=== PATIENT | female | born 1990 | race American Indian/Alaskan Native ===

== ENCOUNTER 2018-01-13 13:25 | Inpatient (IN) | payer MEDICAID ==
[2018-01-13] MEDS ORDERED: ePHEDrine SULFATE IV PRN ×2 (13:58→16:16)
[2018-01-13] MEDS ORDERED: BRETHINE SUB-Q PRN (13:58)
[2018-01-13] MEDS ORDERED: CALCIUM GLUCONATE IV ONE (13:58)
[2018-01-13] MEDS ORDERED: NARCAN 0.4 MG/1 ML IV PRN (13:58)
[2018-01-13] MEDS ORDERED: BRETHINE IVP PRN (13:58)
[2018-01-13] MEDS ORDERED: ZOFRAN IV PRN ×2 (13:58→19:55)
[2018-01-13] MEDS ORDERED: XYLOCAINE 2% INFILTRATI ONE (13:58)
[2018-01-13] MEDS ORDERED: POLYCILLIN/NS 2 GM/100 ML 2 GM/100 ML BAG IV ONE (13:58)
[2018-01-13] MEDS ORDERED: MAGNESIUM SULFATE 4GM/100ML 4 GM/100 ML BAG IV ONE (13:58)
[2018-01-13] MEDS ORDERED: MINERAL OIL PO PRN (13:58)
[2018-01-13] MEDS ORDERED: PITOCin/NS 20 UNIT/1000ML DRIP 20 UNITS/1,000 ML BAG IV SCH ×2 (14:00→19:55)
[2018-01-13] MEDS ORDERED: LACTATED RINGERS 1,000 ML IV SCH ×2 (14:00)
[2018-01-13] MEDS: APRESOLINE IV PRN ×3 (14:15→19:43)
[2018-01-13] MEDS: SUBLIMAZE IV PRN ×2 (14:32→17:20)
[2018-01-13 14:34] LABS: Hematocrit 33.7 % (30.3-42.9); Mean Corpuscular HGB Conc 33 % (30-34); Mean Corpuscular Hemoglobin 28 pg (28-32); Mean Corpuscular Volume 84 fl (79-97); Platelet Count 120 K/mm3 (140-440); Red Blood Count 4.02 M/mm3 (3.65-5.03)
[2018-01-13] MEDS: PITOCin/NS 30 UNIT/500ML 30 UNITS/500 ML BAG IV SCH ×2 (14:37→15:21)
[2018-01-13] MEDS: MAGNESIUM SULFATE 40GM/1000ML 40 GM/1,000 ML BAG IV SCH (15:05)
[2018-01-13 15:43] LABS: Alanine Aminotransferase < 5 units/L (7-56)
[2018-01-13] MEDS ORDERED: NARCAN 2 MG/2 ML IV PRN (16:16)
--- NOTE | 2018-01-13 16:16 | History and Physical Report ---
History of Present Illness Date of examination: 01/13/18 Date of admission: 01/13/18 13:59 Chief complaint: contractions History of present illness: Pt is a 28 year old -[place] female MOHIT 01/20/18 at 39w0d who presents with regular contractions and elevated blood pressures 210s/110s and cervical dilation of 4 cm. While in triage, the patient experienced rupture of membranes with thick meconium. She has had care at [facility] since entry into care at 15 wks complicated by chronic hypertension on labetalol daily (pt non-compliant with medication regimen), late entry into care , h/o preeclampsia in previous , genital herpes without evidence of lesion or prodrome, morbid obesity. She is GBS unknown. Of note, her blood pressures were elevated in the office on 01/11/18 and the patient was instructed to proceed to labor and delivery but she refused at that time. 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 Family/Genetic History: hypertension Social history: no significant social history - Obstetrical History Expected Date of Delivery: 01/20/18 Actual Gestation: 39 Week(s) 0 Day(s) : 3 Para: 2 Hx # Term Pregnancies: 2 Number of Pregnancies: 0 Spontaneous Abortions: 0 Induced : 0 Number of Living Children: 2 Medications and Allergies Allergies Allergy/AdvReac Type Severity Reaction Status Date / Time Latex, Natural Rubber Allergy Mild Itching Verified 01/13/18 13:43 Home Medications Medication Instructions Recorded Confirmed Last Taken Type Labetalol HCl 200 tab PO BID 01/13/18 01/13/18 1 Day Ago History ~01/12/18 Active Meds: Active Medications Ephedrine Sulfate (Ephedrine Sulfate) 10 mg IV Q2M PRN PRN Reason: Hypotension Fentanyl (Sublimaze) 100 mcg IV Q2H PRN PRN Reason: Labor Pain Last Admin: 01/13/18 14:32 Dose: 100 mcg Hydralazine HCl (Apresoline) 5 mg IV Q30MIN PRN PRN Reason: Hypertension Last Admin: 01/13/18 14:15 Dose: 5 mg Ampicillin Sodium (Ampicillin/Ns 1 Gm/50 Ml) 1 gm in 50 mls @ 100 mls/hr IV Q4HR ANSHU; Protocol Lactated Ringer's (Lactated Ringers) 1,000 mls @ 125 mls/hr IV DIRECT ANSHU Last Admin: 01/13/18 15:20 Dose: 125 mls/hr Lactated Ringer's (Lactated Ringers) 1,000 mls @ 125 mls/hr IV DIRECT ANSHU Magnesium Sulfate (Magnesium Sulfate 40gm/1000ml) 40 gm in 1,000 mls @ 50 mls/ hr IV DIRECT ANSHU Last Admin: 01/13/18 15:05 Dose: 2 gm/hr, 50 mls/hr Oxytocin/Sodium Chloride (Pitocin/Ns 20 Unit/1000ml Drip) 20 units in 1,000 mls @ 125 mls/hr IV DIRECT ANSHU Oxytocin/Sodium Chloride (Pitocin/Ns 30 Unit/500ml) 30 units in 500 mls @ 4 mls /hr IV TITR ANSHU; Protocol Last Admin: 01/13/18 15:21 Dose: 8 ml/hr, 8 mls/hr Mineral Oil (Mineral Oil) 30 ml PO QHS PRN PRN Reason: Constipation Naloxone HCl (Narcan 0.4 Mg/1 Ml) 0.1 mg IV Q2MIN PRN PRN Reason: Res Rate </= 8 or 02 SAT < 92% Ondansetron HCl (Zofran) 4 mg IV Q8H PRN PRN Reason: Nausea And Vomiting Terbutaline Sulfate (Brethine) 0.25 mg SUB-Q ONCE PRN PRN Reason: Hyperstimulation/Hypertonicity Terbutaline Sulfate (Brethine) 0.25 mg IVP ONCE PRN PRN Reason: Hyperstimulation/Hypertonicity Review of Systems All systems: negative - Vital Signs Vital signs: Vital Signs Pulse BP 89 224/127 01/13/18 13:41 01/13/18 13:41 Temp Pulse Resp BP Pulse Ox 97.6 F 100 H 18 151/87 99 01/13/18 14:17 01/13/18 16:04 01/13/18 14:17 01/13/18 16:04 01/13/18 16:02 - Physical Exam Breasts: Positive: deferred Cardiovascular: Regular rate Lungs: Positive: Clear to auscultation Abdomen: Positive: soft (obese, gravid ) Genitourinary (Female): Positive: normal external genitalia Uterus: Positive: enlarged (gravid ) Extremities: Positive: edema (trace) - Obstetrical FHR: category 2 Cervical Dilatation: 4 (Per RN ) Uterine Contraction Pattern: Irregular Uterine Tone Measurement Phase: Resting Uterine Contraction Intensity: Moderate Results Result Diagrams: 01/13/18 14:00 01/13/18 14:00 Abnormal lab results 01/13/18 01/13/18 Range/Units 14:00 14:00 RDW 16.0 H (13.2-15.2) % Plt Count 120 L (140-440) K/mm3 Creatinine 0.6 L (0.7-1.2) mg/dL AST 54 H (5-40) units/L ALT < 5 L (7-56) units/L Lactate Dehydrogenase 851 H (91-180) units/L All other labs normal. Assessment and Plan A: IUP at 39w0d Chronic HTN with superimposed preeclampsia Thrombocytopenia Morbid Obesity Insufficient care GBS unknown Genital Herpes- no lesions or prodrome H/o Preeclampsia in previous P: Admit to labor and delivery. Magnesium sulfate for seizure prophylaxis PIH labs Pitocin augmentation GBS prophylaxis Closely monitor maternal and status
--- NOTE | 2018-01-13 16:19 | Anesthesia Consultation ---
Anesthesia Consult and Med Hx Date of service: 01/13/18 - Airway Anesthetic Teeth Evaluation: Good ROM Head & Neck: Adequate Mental/Hyoid Distance: Adequate Mallampati Class: Class II Intubation Access Assessment: Probably Good - Pulmonary Exam CTA: Yes - Cardiac Exam Cardiac Exam: RRR - Pre-Operative Health Status ASA Pre-Surgery Classification: ASA3 Proposed Anesthetic Plan: Epidural, Spinal - Pulmonary Hx Asthma: No COPD: No Hx Pneumonia: No - Cardiovascular System Hx Hypertension: Yes - Central Nervous System Hx Seizures: No Hx Psychiatric Problems: No - Endocrine Hx Renal Disease: No Hx End Stage Renal Disease: No Hx Hypothyroidism: No Hx Hyperthyroidism: No - Hematic Hx Anemia: No Hx Sickle Cell Disease: No - Other Systems Hx Alcohol Use: No
[2018-01-13] MEDS ORDERED: BICITRA ONE (16:23)
[2018-01-13] MEDS ORDERED: REGLAN ONE (16:23)
[2018-01-13] MEDS ORDERED: PEPCID IV ONE (16:24)
--- NOTE | 2018-01-13 16:24 | Anesthesia Day of Surgery ---
Anesthesia Day of Surgery - Day of Surgery Patient Examined: Yes Patient H&P Reviewed: Yes Patient is NPO: Yes
[2018-01-13] MEDS ORDERED: CYTOTEC ONE (16:45)
[2018-01-13] MEDS ORDERED: fentaNYL-BUPIV 2 MCG/ML-0.125% 200 MCG/100 ML BAG EPIDURAL SCH (17:00)
--- NOTE | 2018-01-13 17:10 | Event Note ---
Date: 01/13/18 Pt comfortable with epidural. Pt with deep variables. SVE: /-2. FSE placed. Closely monitor and maternal status.
--- NOTE | 2018-01-13 17:14 | Procedure Note ---
OB Delivery Note - Delivery Date of Delivery: 01/13/18 Surgeon: JOEL DENISE Estimated blood loss: other (600 mL) - Vaginal Delivery presentation: vertex Delivery position: OA Intrapartum events: PROM->1hr before delivery, meconium, preeclampsia, mult.variable deceleratio, uterine atony Delivery induction: none Delivery augmentation: pitocin Delivery monitor: external uterine, internal FHT Route of delivery: Delivery placenta: spontaneous Delivery cord: nuchal cord, 3 umbilical vessels Episiotomy: none Delivery laceration: 1st degree Delivery repair: vicryl Anesthesia: epidural Delivery comments: Pt rapidly progressed to complete/complete/-1 and pushed to deliver a viable male over intact perineum under epidural anesthesia via . Head delivered spontanesouly. Nuchal cord x 1 reduced. Shoulders and body delivered easily. placed on maternal abdomen. Cord clamped and cut and handed to NICU staff in attendance for meconium. Cord segment and cord blood collected. Placenta delivered sponteously (3VC). Uterus noted to atonic despite pitocin infusion and bimanual massage. Misoprostol 800 mcg placed per rectum. Fundus then firm. Vagina and perineum explored. First degree perineal laceration repaired with 3-0 Vicryl in a standard fashion. EBL 600 mL. - Infant A at 1 minute: 8 at 5 minutes: 9 Gender: Male (2826g (6lb 4oz) @ 1639 pm)
[2018-01-13] MEDS ORDERED: CYTOTEC VG ONE (18:00)
[2018-01-13] MEDS ORDERED: AMPICILLIN/NS 1 GM/50 ML 1 GM/50 ML BAG IV SCH (18:01)
[2018-01-13] MEDS ORDERED: APRESOLINE ONE (19:38)
[2018-01-13] MEDS ORDERED: DULCOLAX PR PRN (19:55)
[2018-01-13] MEDS ORDERED: MILK OF MAGNESIA PO PRN (19:55)
[2018-01-13] MEDS ORDERED: TUCKS PAD TP PRN (19:55)
[2018-01-13] MEDS ORDERED: BENADRYL PO PRN (19:55)
[2018-01-13] MEDS ORDERED: PHENERGAN PR PRN (19:55)
[2018-01-13] MEDS ORDERED: SODIUM CHLORIDE FLUSH SYRINGE 10 ML IV PRN (19:55)
[2018-01-13] MEDS ORDERED: LANSINOH TP PRN ×2 (19:55)
[2018-01-13] MEDS ORDERED: TYLENOL PO PRN (19:55)
[2018-01-13] MEDS ORDERED: NORMODYNE IV ONE (20:00)
[2018-01-13] MEDS: NORCO 5/325 PO PRN (20:00)
[2018-01-13] MEDS: FEOSOL PO SCH (22:40)
[2018-01-13] MEDS: MOTRIN PO SCH (22:40)
[2018-01-13] MEDS: LACTATED RINGERS 1,000 ML IV SCH (23:10)
[2018-01-14] MEDS: NORMODYNE PO SCH ×3 (00:18→21:23)
[2018-01-14 01:38] LABS: Bilirubin,Urine NEG (Negative); Blood,Urine MOD (Negative); Color,Urine Straw (Yellow); Urobilinogen,Urine < 2.0 mg/dL (<2.0)
[2018-01-14] MEDS: NORCO 5/325 PO PRN ×4 (04:53→23:31)
[2018-01-14] MEDS: MOTRIN PO SCH ×4 (04:54→23:31)
[2018-01-14] MEDS: DERMOPLAST TP PRN (05:57)
[2018-01-14 09:28] LABS: Hematocrit 29.8 % (30.3-42.9); Hemoglobin 9.6 gm/dl (10.1-14.3); Mean Corpuscular HGB Conc 32 % (30-34); Mean Corpuscular Hemoglobin 27 pg (28-32); Mean Corpuscular Volume 85 fl (79-97); Red Blood Count 3.52 M/mm3 (3.65-5.03); Red Cell Distribution Width 16.2 % (13.2-15.2)
[2018-01-14 09:36] LABS: Platelet Count 92 K/mm3 (140-440)
[2018-01-14 09:48] LABS: Alanine Aminotransferase 9 units/L (7-56); Uric Acid 6.5 mg/dL (3.5-7.6)
[2018-01-14] MEDS: MAGNESIUM SULFATE 40GM/1000ML 40 GM/1,000 ML BAG IV SCH (10:45)
[2018-01-14] MEDS: CLARITIN PO SCH (10:46)
[2018-01-14] MEDS: FEOSOL PO SCH ×2 (10:47→21:23)
[2018-01-14] MEDS: TESSALON PERLES PO SCH ×2 (11:00→19:49)
[2018-01-14] MEDS: LACTATED RINGERS 1,000 ML IV SCH (15:04)
[2018-01-14] MEDS ORDERED: M-M-R II VACCINE SUB-Q ONE (17:18)
--- NOTE | 2018-01-14 19:12 | Progress Note ---
Assessment and Plan A: PPD#1 s/p at 39 wks Chronic HTN with superimposed preeclampsia on Magnesium Sulfate for seizure prophylaxis Thrombocytopenia Morbid Obesity P: Continue Mag Sulfate for 24 hrs after delivery Closely monitor clinical status Increase antihypertensives as indicated Subjective - Subjective Date of service: 01/14/18 Principal diagnosis: cHTN with superimposed preeclampsia Interval history: Late entry. Pt feeling well today. Denies headache, blurry vision, or RUQ pain. Patient reports: appetite normal, pain well controlled, no voiding normally ( santana in place ), no ambulating normally (SCDs in place ) [place]: doing well Objective - Vital Signs Latest vital signs: Vital Signs Temp Pulse Resp BP BP BP Pulse Ox 01/14/18 18:04 98.2 F 99 H 20 135/79 01/14/18 17:45 20 01/14/18 12:40 98.6 F 82 20 126/69 01/14/18 11:00 20 01/14/18 10:30 98.2 F 86 20 132/70 01/14/18 10:00 80 125/74 01/14/18 07:40 97.8 F 80 20 125/74 01/14/18 06:10 94 H 146/86 01/14/18 04:53 20 01/14/18 04:10 97.7 F 106 H 20 150/96 01/14/18 00:45 98 H 130/81 01/14/18 00:18 97 H 146/91 01/13/18 23:30 98 H 20 139/87 01/13/18 23:15 98 H 21 146/88 01/13/18 23:00 100 H 146/88 01/13/18 22:45 100 H 148/86 01/13/18 22:40 98 H 151/92 01/13/18 22:35 101 H 141/82 01/13/18 22:33 106 H 169/100 01/13/18 22:30 106 H 169/100 01/13/18 22:11 98.1 F 105 H 20 172/104 01/13/18 19:43 107 H 167/88 01/13/18 19:41 108 H 99 01/13/18 19:36 107 H 167/88 98 01/13/18 19:31 107 H 99 01/13/18 19:26 102 H 100 01/13/18 19:21 95 H 169/93 100 01/13/18 19:16 109 H 99 Intake and Output 01/14/18 01/14/18 01/14/18 06:59 14:59 22:59 Intake Total 480 2073.333 360 Output Total 2400 900 800 Balance -1920 1173.333 -440 Intake: IV 1833.333 Lactated Ringers 1,000 ml 887.5 @ 125 mls/hr IV DIRECT ANSHU Rx#:[id number] MAGNESIUM SULFATE 40GM/ 945.833 1000ML 40 gm In 1,000 ml @ 2 GM/HR 50 mls/hr IV DIRECT ANSHU Rx#:[id number] Oral 480 240 360 Output: Urine 2400 900 800 Indwelling Catheter 2400 900 800 Other: Total, Intake Amount 240 240 360 Total, Output Amount 1600 900 800 - Exam Breasts: Present: deferred Cardiovascular: Present: Regular rate Lungs: Present: Clear to auscultation Abdomen: Present: soft (obese ) Uterus: Present: fundal height at umbilicus Extremities: Present: edema (trace) - Labs Labs: Abnormal lab results 01/13/18 01/14/18 01/14/18 Range/Units 21:14 00:33 08:51 WBC 12.3 H (4.5-11.0) K/mm3 RBC 3.52 L (3.65-5.03) M/mm3 Hgb 9.6 L (10.1-14.3) gm/dl Hct 29.8 L (30.3-42.9) % MCH 27 L (28-32) pg RDW 16.2 H (13.2-15.2) % Plt Count 92 L (140-440) K/mm3 Creatinine (0.7-1.2) mg/dL Magnesium 4.70 H 4.60 H (1.7-2.3) mg/dL Lactate Dehydrogenase (91-180) units/L 01/14/18 Range/Units 08:51 WBC (4.5-11.0) K/mm3 RBC (3.65-5.03) M/mm3 Hgb (10.1-14.3) gm/dl Hct (30.3-42.9) % MCH (28-32) pg RDW (13.2-15.2) % Plt Count (140-440) K/mm3 Creatinine 0.6 L (0.7-1.2) mg/dL Magnesium 4.90 H (1.7-2.3) mg/dL Lactate Dehydrogenase 323 H (91-180) units/L
[2018-01-15] MEDS: TESSALON PERLES PO SCH ×3 (03:34→21:50)
[2018-01-15] MEDS: PHENERGAN PO PRN ×2 (03:34→14:10)
[2018-01-15] MEDS ORDERED: BOOSTRIX IM ONE (06:00)
[2018-01-15] MEDS: NORCO 5/325 PO PRN ×2 (06:11→20:18)
[2018-01-15] MEDS ORDERED: NORMODYNE PO SCH (07:00)
--- NOTE | 2018-01-15 07:34 | Post Anesthesia Evaluation ---
- Post Anesthesia Evaluation Patient Participated: Yes Airway Patent: Yes Stable Respiratory Function: Yes Nausea/Vomiting: No Temp > 96.8F: Yes Pain Manageable: Yes Adequeate Hydration: Yes Anesthesia Complications: No Block Receding Appropriately: Yes Patient on Ventilator: No
--- NOTE | 2018-01-15 08:58 | Progress Note ---
Assessment and Plan - Patient Problems (1) Chronic hypertension with superimposed pre-eclampsia Current Visit: Yes Status: Acute Plan to address problem: Will add the procardia to anti-hypertensive regimen Repeat [facility] labs Continue to monitor her clinical status closely Subjective - Subjective Date of service: 01/15/18 Principal diagnosis: cHTN with superimposed preeclampsia Interval history: The patient reports mild stomach upset. She denies any vomiting. The patient has completed her magnesium sulfate prophylaxis. Blood pressures still remain elevated. Patient reports: voiding normally, pain well controlled [place]: doing well Objective - Vital Signs Latest vital signs: Vital Signs Temp Pulse Resp BP BP Pulse Ox 01/15/18 07:09 104 H 165/102 01/15/18 01:38 98.1 F 106 H 20 159/87 96 01/14/18 21:23 102 H 157/96 01/14/18 21:19 98.6 F 102 H 157/96 96 01/14/18 18:04 98.2 F 99 H 20 135/79 01/14/18 17:45 20 01/14/18 12:40 98.6 F 82 20 126/69 01/14/18 11:00 20 01/14/18 10:30 98.2 F 86 20 132/70 01/14/18 10:00 80 125/74 Intake and Output 01/14/18 01/15/18 01/15/18 22:59 06:59 14:59 Intake Total 360 240 Output Total 800 Balance -440 240 Intake: Oral 360 240 Output: Urine 800 Indwelling Catheter 800 Other: Total, Intake Amount 360 240 Total, Output Amount 800 # Voids Indwelling Catheter 1 - Exam Uterus: Present: normal, firm - Labs Labs: Abnormal lab results 01/14/18 01/14/18 Range/Units 08:51 08:51 WBC 12.3 H (4.5-11.0) K/mm3 RBC 3.52 L (3.65-5.03) M/mm3 Hgb 9.6 L (10.1-14.3) gm/dl Hct 29.8 L (30.3-42.9) % MCH 27 L (28-32) pg RDW 16.2 H (13.2-15.2) % Plt Count 92 L (140-440) K/mm3 Creatinine 0.6 L (0.7-1.2) mg/dL Magnesium 4.90 H (1.7-2.3) mg/dL Lactate Dehydrogenase 323 H (91-180) units/L
[2018-01-15] MEDS: FEOSOL PO SCH ×2 (10:01→21:50)
[2018-01-15] MEDS: CLARITIN PO SCH (10:01)
[2018-01-15] MEDS: PROCARDIA XL PO SCH (12:07)
[2018-01-15 16:30] LABS: Hematocrit 32.6 % (30.3-42.9); Hemoglobin 10.7 gm/dl (10.1-14.3); Mean Corpuscular HGB Conc 33 % (30-34); Mean Corpuscular Hemoglobin 28 pg (28-32); Mean Corpuscular Volume 85 fl (79-97); Red Blood Count 3.83 M/mm3 (3.65-5.03); Red Cell Distribution Width 16.6 % (13.2-15.2)
[2018-01-15 16:54] LABS: Alanine Aminotransferase 14 units/L (7-56); Albumin 2.4 g/dL (3.9-5); BUN/Creatinine Ratio 22; Blood Urea Nitrogen 13 mg/dL (7-17); Hemolysis Index 15; Uric Acid 6.4 mg/dL (3.5-7.6)
[2018-01-15 17:32] LABS: Platelet Count 84 K/mm3 (140-440)
[2018-01-15] MEDS: NORMODYNE PO SCH (18:21)
[2018-01-16] MEDS: MOTRIN PO SCH ×2 (00:52→05:05)
[2018-01-16] MEDS: NORMODYNE PO SCH ×2 (01:31→10:03)
[2018-01-16] MEDS: TESSALON PERLES PO SCH ×2 (05:16→10:07)
--- NOTE | 2018-01-16 08:56 | Progress Note ---
Assessment and Plan A: PPD#3 s/p at 39 wks Chronic HTN with superimposed preeclampsia on Magnesium Sulfate for seizure prophylaxis Thrombocytopenia Morbid Obesity P: d/c home with normalize BP on procardia and labetolol f/u in 1 weeks for BP check s/p mag will call for appt for circumcision desires tubal ligation for control Subjective - Subjective Principal diagnosis: cHTN with superimposed preeclampsia Patient reports: appetite normal, voiding normally, pain well controlled, flatus , ambulating normally [place]: doing well Objective - Vital Signs Latest vital signs: Vital Signs Temp Pulse Resp BP BP Pulse Ox 01/16/18 04:10 98.7 F 100 H 16 127/79 01/16/18 01:31 98 H 124/80 01/16/18 00:00 98.7 F 98 H 18 128/73 01/15/18 20:18 20 01/15/18 20:00 98.9 F 89 18 138/86 01/15/18 18:21 116 H 157/96 01/15/18 16:45 99.8 F H 115 H 20 157/96 99 01/15/18 12:14 99.7 F H 109 H 20 148/95 98 Intake and Output 01/15/18 01/16/18 01/16/18 23:59 07:59 15:59 Intake Total 620 300 Balance 620 300 Intake: Oral 320 Intake, Free Water 300 300 Other: Total, Intake Amount 200 # Voids Void 1 - Exam Breasts: Present: normal Cardiovascular: Present: Regular rate, Normal S1 Lungs: Present: Clear to auscultation, Normal air movement Abdomen: Present: normal appearance, soft, normal bowel sounds. Absent: distention, tenderness, guarding Vulva: both: normal Uterus: Present: normal, firm, fundal height below umbilicus. Absent: bogginess , tenderness Extremities: Present: normal Deep Tendon Reflex Grade: Normal +2 - Labs Labs: Abnormal lab results 01/15/18 01/15/18 Range/Units 15:14 15:14 RDW 16.6 H (13.2-15.2) % Plt Count 84 L (140-440) K/mm3 Sodium 136 L (137-145) mmol/L Creatinine 0.6 L (0.7-1.2) mg/dL Calcium 7.0 L (8.4-10.2) mg/dL Total Protein 4.7 L (6.3-8.2) g/dL Albumin 2.4 L (3.9-5) g/dL
--- NOTE | 2018-01-16 09:01 | Discharge Summary ---
Providers - Providers Date of Admission: 01/13/18 13:59 Date of discharge: 01/16/18 Attending physician: JOEL DENISE 01/13/18 19:55 Consult to Enrichment Specialist [CONS] Routine Reason For Exam: assistance with , SNS Primary care physician: JOEL DENISE Hospitalization Reason for admission: active labor Delivery: Episiotomy: none Laceration: none Other procedures: none complications: other (Elevated BP ) Discharge diagnosis: IUP at term delivered baby: male Condition at discharge: Good Disposition: DC-01 TO HOME OR SELFCARE Plan - Discharge Medications Prescriptions: Ibuprofen [Motrin] 600 mg PO Q8H PRN #30 tablet PRN Reason: Pain Labetalol [Normodyne TAB] 200 mg PO TID #60 tablet NIFEdipine XL [Procardia Xl] 60 mg PO QDAY #30 tablet oxyCODONE /ACETAMINOPHEN [Percocet 5/325] 1 tab PO Q6HR PRN #20 tablet PRN Reason: Pain - Provider Discharge Summary Activity: routine, no sex for 6 weeks, no strenuous exercise Diet: routine Instructions: routine Additional instructions: [] Smoking cessation referral if applicable(refer to patient education folder for contact #) [] Refer to [facility] Booklet Call your doctor immediately for: * Fever > 100.5 * Heavy vaginal bleeding ( >1 pad per hour) * Severe persistent headache * Shortness of breath * Reddened, hot, painful area to leg or breast * Drainage or odor from incision. * Keep incision clean and dry at all times and follow doctor's instructions regarding bathing/showering - Follow up plan Follow up: JOEL DENISE MD [Primary Care Provider] - 7 Days
[2018-01-16] MEDS: PROCARDIA XL PO SCH (10:02)
[2018-01-16] MEDS: FEOSOL PO SCH (10:03)
[2018-01-16] MEDS: CLARITIN PO SCH (10:03)
[2018-01-16 16:53] VITALS: BP 113/71
[2018-01-16] MEDS: DERMOPLAST TP PRN (18:55)
== END 2018-01-16 17:30 | disposition home or self-care (01) | DRG 774 ==
LOC: TRG 13:25 → LD 13:59 → OB 19:36
PROVIDERS: ADMIT Obstetrics & Gynecology; ATTEND Obstetrics & Gynecology
PROC: 10E0XZZ Delivery of Products of Conception, External Approach (ICD-10-PCS; principal; 2018-01-13)
PROC: 0HQ9XZZ Repair Perineum Skin, External Approach (ICD-10-PCS; 2018-01-13)
PROC: 3E0R3BZ Introduction of Anesthetic Agent into Spinal Canal, Percutaneous Approach (ICD-10-PCS; 2018-01-13)
PROC: 00HU33Z Insertion of Infusion Device into Spinal Canal, Percutaneous Approach (ICD-10-PCS; 2018-01-13)
PROC: 3E0234Z Introduction of Serum, Toxoid and Vaccine into Muscle, Percutaneous Approach (ICD-10-PCS; 2018-01-15)
DX: O11.4 Pre-existing hypertension with pre-eclampsia, complicating childbirth (principal); O99.12 Other diseases of the blood and blood-forming organs and certain disorders involving the immune mechanism complicating childbirth; D69.6 Thrombocytopenia, unspecified; O99.214 Obesity complicating childbirth; E66.01 Morbid (severe) obesity due to excess calories; O98.32 Other infections with a predominantly sexual mode of transmission complicating childbirth; O77.0 Labor and delivery complicated by meconium in amniotic fluid; O70.0 First degree perineal laceration during delivery; Z3A.39 39 weeks gestation of pregnancy; Z37.0 Single live birth; Z23 Encounter for immunization; Z82.49 Family history of ischemic heart disease and other diseases of the circulatory system; O69.81X0 Labor and delivery complicated by cord around neck, without compression, not applicable or unspecified; O76 Abnormality in fetal heart rate and rhythm complicating labor and delivery; Z68.41 Body mass index [BMI] 40.0-44.9, adult; O98.52 Other viral diseases complicating childbirth; B00.9 Herpesviral infection, unspecified; O62.2 Other uterine inertia
CPT/HCPCS: 36415; 80053; 81001; 82565; 82803; 83615; 83735; 84450; 84460; 84550; 85027; 86592; 86850; 86900; 86901; 88307; 99211; G0463; J0290; J0360; J2405; J2590; J2765; J3010; J3475; J7120; Q0169

== ENCOUNTER 2019-12-11 21:52 | Inpatient (IN) | payer MEDICAID ==
[2019-12-11] MEDS ORDERED: AMPICILLIN/NS 2 GM/100 ML 2 GM/100 ML BAG IV ONE (22:41)
[2019-12-11] MEDS ORDERED: ePHEDrine SULFATE 50 MG/1 ML INJ IV PRN (22:46)
[2019-12-11] MEDS ORDERED: MINERAL OIL 30 ML ORAL LIQD PO PRN (22:46)
[2019-12-11] MEDS ORDERED: LIDOCAINE (2%) 20 MG/1 ML VIAL 20 ML MDV INFILTRATI ONE (22:46)
[2019-12-11] MEDS ORDERED: TERBUTALINE 1 MG/1 ML INJ SUB-Q PRN (22:46)
[2019-12-11] MEDS ORDERED: TERBUTALINE 1 MG/1 ML INJ IVP PRN (22:46)
[2019-12-11] MEDS ORDERED: OXYTOCIN 20 UNIT/1000ML DRIP 20 UNITS/1,000 ML BAG IV SCH (23:00)
[2019-12-11] MEDS ORDERED: LACTATED RINGERS 1,000 ML IV SCH ×2 (23:00→23:45)
[2019-12-11] MEDS ORDERED: MAGNESIUM SULFATE 4 GM/100 ML BAG IV ONE (23:44)
[2019-12-11 23:49] LABS: Hematocrit 24.5 % (30.3-42.9); Hemoglobin 7.9 gm/dl (10.1-14.3); Mean Corpuscular HGB Conc 32 % (30-34); Mean Corpuscular Volume 79 fl (79-97); Platelet Count 231 K/mm3 (140-440); Red Blood Count 3.09 M/mm3 (3.65-5.03); Red Cell Distribution Width 18.1 % (13.2-15.2)
[2019-12-11] MEDS ORDERED: hydrALAZINE 20 MG/1 ML INJ IV ONE (23:49)
[2019-12-11] MEDS ORDERED: TETANUS,DIPH,PERTUSS(ACELL) VACCINE 0.5 ML SYRINGE IM ONE (23:54)
[2019-12-12] MEDS ORDERED: ONDANSETRON 4 MG/2 ML INJ IV PRN ×2 (00:14→05:56)
[2019-12-12 00:57] LABS: Alanine Aminotransferase 11 units/L (7-56)
[2019-12-12] MEDS: MAGNESIUM SULFATE 40GM/1000ML 40 GM/1,000 ML BAG IV SCH (01:21)
[2019-12-12] MEDS ORDERED: AMPICILLIN/NS 1 GM/50 ML 1 GM/50 ML BAG IV SCH (02:42)
[2019-12-12 03:47] LABS: Uric Acid 6.3 mg/dL (3.5-7.6)
[2019-12-12] MEDS ORDERED: ceFAZolin/Water 2 GM/20 ML 2 GM/20 ML SYRINGE IV ONE (04:28)
[2019-12-12] MEDS ORDERED: FAMOTIDINE 20 MG/2 ML INJ IV ONE (04:28)
[2019-12-12] MEDS ORDERED: BICITRA ORAL LIQD 30ML ONE (04:28)
[2019-12-12] MEDS ORDERED: METOCLOPRAMIDE 10 MG/2 ML INJ ONE (04:28)
[2019-12-12] MEDS ORDERED: WATER FOR IRRIG STERILE 1,500 ML BOTTLE IR ONE (04:32)
[2019-12-12] MEDS ORDERED: ceFAZolin/STERILE WATER 2 GM/20 ML SYRINGE IV ONE (04:32)
[2019-12-12] MEDS ORDERED: SODIUM CHLORIDE 0.9% IRR 1,500 ML BOTTLE IR ONE (04:32)
[2019-12-12] MEDS ORDERED: SUCCINYLCHOLINE CHLORIDE 200 MG/10 ML INJ MDV ONE (04:36)
[2019-12-12] MEDS ORDERED: propofoL 200 MG/20 ML VIAL IV ONE (04:36)
[2019-12-12] MEDS ORDERED: KETAMINE/STERILE WATER 50 MG/ML SYRINGE ONE (04:36)
[2019-12-12] MEDS ORDERED: miSOPROStol 200 MCG TAB ONE (04:48)
[2019-12-12] MEDS ORDERED: CARBOPROST TROMETHAMINE 250 MCG/1 ML INJ IM ONE (04:48)
[2019-12-12] MEDS ORDERED: OXYTOCIN 10 UNIT/1 ML INJ ONE (04:54)
[2019-12-12] MEDS ORDERED: KETOROLAC 30 MG/1 ML INJ ONE (04:55)
[2019-12-12] MEDS ORDERED: ONDANSETRON 4 MG/2 ML INJ ONE (04:55)
[2019-12-12] MEDS ORDERED: HYDROmorphone 1 MG/1 ML INJ ONE ×2 (04:59)
[2019-12-12] MEDS ORDERED: NALOXONE 0.4 MG/1 ML INJ IV PRN (05:56)
--- NOTE | 2019-12-12 05:57 | Anesthesia Day of Surgery ---
Anesthesia Day of Surgery - Day of Surgery Patient Examined: Yes Patient H&P Reviewed: Yes Patient is NPO: Yes Beta Blockers: No Cardiac Clearance: No Pulmonary Clearance: No Lion's Test: N/A
--- NOTE | 2019-12-12 05:59 | Anesthesia Consultation ---
Anesthesia Consult and Med Hx Date of service: 12/12/19 - Airway Anesthetic Teeth Evaluation: Poor ROM Head & Neck: Adequate Mental/Hyoid Distance: Adequate Mallampati Class: Class III Intubation Access Assessment: Probably Good - Pulmonary Exam CTA: Yes - Cardiac Exam Cardiac Exam: RRR - Pre-Operative Health Status ASA Pre-Surgery Classification: ASA3, Emergency Proposed Anesthetic Plan: General - Pulmonary Hx Smoking: No Hx Asthma: No Hx Respiratory Symptoms: No SOB: No COPD: No Home Oxygen Therapy: No Hx Pneumonia: No Hx Sleep Apnea: No - Cardiovascular System Hx Hypertension: No Hx Coronary Artery Disease: No Hx Heart Attack/AMI: No Hx Angina: No Hx Percutaneous Transluminal Coronary Angioplasty (PTCA): No Hx Cardia Arrhythmia: No Hx Pacemaker: No Hx Internal Defibrillator: No Hx Valvular Heart Disease: No Hx Heart Murmur: No Hx Peripheral Vascular Disease: No - Central Nervous System Hx Neuromuscular Disorder: No Hx Seizures: No CVA: No Hx Back Pain: No Hx Psychiatric Problems: No - Gastrointestinal Hx Ulcer: No - Endocrine Hx Renal Disease: No Hx End Stage Renal Disease: No Hx Cirrhosis: No Hx Liver Disease: No Hx Insulin Dependent Diabetes: No Hx Non-Insulin Dependent Diabetes: No Hx Thyroid Disease: No Hx Hypothyroidism: No Hx Hyperthyroidism: No - Hematic Hx Anemia: No Hx Sickle Cell Disease: No - Other Systems Hx Alcohol Use: No Hx Substance Use: No Hx Cancer: No Hx Obesity: Yes
--- NOTE | 2019-12-12 05:59 | Post Anesthesia Evaluation ---
- Post Anesthesia Evaluation Patient Participated: Yes Airway Patent: Yes Stable Respiratory Function: Yes Nausea/Vomiting: No Temp > 96.8F: No Pain Manageable: Yes Adequeate Hydration: Yes Anesthesia Complications: No Block Receding Appropriately: Not Applicable Patient on Ventilator: No
[2019-12-12] MEDS ORDERED: METOCLOPRAMIDE 10 MG/2 ML INJ IV PRN (06:01)
[2019-12-12] MEDS ORDERED: METOCLOPRAMIDE 10 MG TAB PO PRN (06:01)
[2019-12-12] MEDS ORDERED: MORPHINE 2 MG/1 ML INJ IV PRN (06:01)
[2019-12-12] MEDS ORDERED: DOCUSATE SODIUM 100 MG CAP PO ONE (06:12)
--- NOTE | 2019-12-12 06:15 | XRay Report ---
ABDOMEN, SINGLE VIEW INDICATION / CLINICAL INFORMATION: MAIN: SURGERY; FOREIGN BODIES. COMPARISON: None available. FINDINGS: There is a 13 cm radiopaque linear object along the most inferior aspect of the visualized pelvis, mo stly on the left. I suspect this object would be either on or beneath the patient rather than in the patient. Correlation with physical exam is recommended. Enlarged uterus is seen within the pelvis. Signer Name: Mariya Fuentes MD Signed: 12/12/2019 6:11 AM Workstation Name: [id number]
[2019-12-12] MEDS: HYDROmorphone 1 MG/1 ML INJ IV PRN ×4 (06:20→07:04)
--- NOTE | 2019-12-12 06:28 | Operative Report ---
Operative Report Operative Report: Date of operation: 12/12/2019 Pre-operative diagnosis: 1. 35 weeks gestational age 2. Twin gestation with IUGR of twin B 3. Noncompliant 4. BMI 42.6 kg/m 5. Chronic hypertension with superimposed preeclampsia 6. Late to care Post-operative diagnosis: 1. 35 weeks gestational age 2. Twin gestation with IUGR of twin B 3. Noncompliant 4. BMI 42.6 kg/m 5. Chronic hypertension with superimposed preeclampsia 6. Late to care Procedure name(s): Emergency primary low transverse delivery Surgeon: Nikki Sandoval MD Roll Edge Machine Operator: Belle Duke CST Anesthesia: General endotracheal anesthesia EBL: 900 mL Urine output: 200 mL of clear urine out at the end of the procedure Fluids: 900 mL Findings: Twin A liveborn male weight 5 Lbs. 6 oz. Apgars of 8 and 9 at one and 5 minutes Twin B liveborn female weight 3 pounds 7 oz. Apgars 5 and 9 at 1 and 5 minutes Indications: This is a 29-year-old female late care who presented for induction secondary to MFM recommendation due to noncompliance uncontrolled hypertension and severe IUGR of twin B. Patient was supposed to arrive at 8:30 AM for induction however arrived at 9 PM. Patient was admitted. She was noted to have elevated blood pressures. Due to her lack of lack of lack of care the diagnosis of preeclampsia superimposed on chronic hypertension was made. She was started on magnesium with a plan to perform an ultrasound this morning to determine presentation and formulate plan for delivery. At approximately 4 AM today I received a call from the RN requested to have the ultrasound performed early due to difficulty with obtaining heart tones on twin A. Once I completed my D&C presented to the patient's room with a bedside ultrasound was available. Baby B was noted to be in the breech presentation with normal heart tones. Baby A was difficult to visualize due to maternal body habitus, presentation and patient's inability to tolerate ultrasound in the supine position. Once it appeared that Ht's on twin a were auscultated at approximately 120's. The ultrasound was again placed on twin B with a heart tones were noted to be low. Due to the inability to clearly visualize the heart motions 120 and a and deceleration on twin B decision was made to proceed with emergent delivery. Procedure: Patient was taking to the operating room. General anesthesia was induced. Everyone present in the room had on N 95 mask. Patient was then prepped and draped in the usual sterile fashion Timeout was performed. A Pfannenstiel incision was made and extended the fascia which was incised and extended lateral direction. The overlying fascia was sharply dissected away from the underlying rectus muscles in the superior inferior direction. The midline was entered bluntly. Bladder blade was placed. Vesicouterine fold was incised with blunt dissection bladder flap was created. A transverse incision was made in the lower uterine segment and extended superolateral direction with finger fractionation. Clear fluid was noted. was delivered from the cephalic position, with spontaneous cry and excellent tone. Mouth and nose bulb suctioned. Cord was doubly clamped and cut was given to the neonata l resuscitation team present. The membranes were ruptured on twin B with presentation of footling breech. The was delivered atraumatically for footling breech presentation. The infant was given to the resuscitation team present. Placentas were delivered. The uterus was exteriorized and cleaned of any further placental tissue and products of conception. Uterine incision was approximated using 0 Vicryl in a running interlocking stitch followed by further suture of 0 Vicryl in imbricating fashion. When hemostasis was noted the uterus was allowed back in the pelvic cavity. Pelvis was irrigated with warm normal saline. Once hemostasis was noted the rectus muscles were approximated using 0 Vicryl interrupted simple stitches 3. Once hemostasis was noted the fascia was approximated using 0 Vicryl simple running stitch. The incision was irrigated with warm saline, once hemostasis as noted, the subcuticular adipose tissue was reapproximated using 3- 0 Vicryl in a simple running fashion. Skin was approximated using 4-0 Vicryl on a Petros needle in a subcuticular manner. Counts were correct x3. Patient tolerated the procedure well, she was taken to recovery room in stable condition.
[2019-12-12 08:41] LABS: Bilirubin,Urine NEG (Negative); Blood,Urine NEG (Negative); Color,Urine Yellow (Yellow); Mucus,Urine 1+ /HPF; Protein,Urine <15 mg/dL mg/dL (Negative); Urobilinogen,Urine < 2.0 mg/dL (<2.0)
[2019-12-12 08:59] LABS: Amphetamine Screen,Urine PRESUMPTIVE NEGATIVE; Benzodiazepines Screen,Urine PRESUMPTIVE NEGATIVE; Cannabinoid Screen,Urine PRESUMPTIVE NEGATIVE; Cocaine Screen,Urine PRESUMPTIVE NEGATIVE; Methadone Screen,Urine PRESUMPTIVE NEGATIVE; Opiate Screen,Urine PRESUMPTIVE NEGATIVE
[2019-12-12] MEDS: FERROUS SULFATE 325 MG TAB PO SCH ×3 (12:03→20:31)
[2019-12-12] MEDS: KETOROLAC 30 MG/1 ML INJ IV SCH ×3 (12:04→23:22)
[2019-12-12] MEDS: ceFAZolin/NS 1 GM/50 ML 1 GM/50 ML BAG IV SCH ×2 (12:12→18:00)
[2019-12-12] MEDS: ACETAMINOPHEN 325 MG TAB PO SCH (14:05)
[2019-12-12] MEDS: MORPHINE 4 MG/1 ML INJ IV PRN ×2 (14:06→20:30)
[2019-12-12 20:00] LABS: Hematocrit 26.2 % (30.3-42.9); Hemoglobin 8.4 gm/dl (10.1-14.3)
[2019-12-13] MEDS: MAGNESIUM SULFATE 40GM/1000ML 40 GM/1,000 ML BAG IV SCH (02:40)
[2019-12-13] MEDS: MORPHINE 4 MG/1 ML INJ IV PRN ×2 (02:50→06:26)
--- NOTE | 2019-12-13 08:20 | History and Physical Report ---
History of Present Illness Date of examination: 12/12/19 Date of admission: 12/11/19 21:52 History of present illness: Patient presents for IOL d/t noncompliance, uncontrolled BP and severe IUGR twin B Past History : 4 Term Births: 3 Premature Births: 0 Living Children: 3 Para: 3 Mult. Births: 0 Prev : 0 Aborta: 0 Elect. Ab: 0 Spont. Ab: 0 Ectopics: 0 # 1 Delivery date: 03/27/2012 Weeks Gestation: 40 Delivery type: Hours of labor: 12 Anesthesia type: epidural Delivery location: [facility] Sex: Male weight: 7-14 Name: Jos # 2 Delivery date: 02/26/2017 Weeks Gestation: 38 labor: no Delivery type: Hours of labor: 10 Anesthesia type: epidural Delivery location: [facility] Infant Sex: Male weight: 6-9 Name: Archie Comments: Pre-eclampsia # 3 Delivery date: 01/13/2018 Weeks Gestation: 40 labor: no Delivery type: Hours of labor: 13 Anesthesia type: epidural Delivery location: [facility] Infant Sex: Male weight: 6-10 Name: Leigh Comments: Hypertension Past Medical History: Hypertension Past Surgical History: Negative Past Surgical History Family History Summary: Other Family Member - Has No Family History of Ovarvian Cancer - Entered On: 11/17/2019 Other Family Member - Has No Family History of Colon Cancer - Entered On: 11/17/2019 Other Family Member - Has No Family History of Breast Cancer - Entered On: 11/17/2019 Other Family Member - Has Family History of Hypertension - Entered On: 11/17/2019 Social History: Marital Status: Children: 3 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 Infection History Hx of STD: none HIV Risk Eval: low risk Hepatitis B Risk Eval: low risk Personal hx. of genital herpes: no Genetic History Congenital Heart Defect: Mom: no Dad: no Elan Disease: Mom: no Dad: no Thalassemia Mom: no Dad: no Neural Tube Defect Mom: no Dad: no Down's Syndrome Mom: no Dad: no Beto-Sachs Mom: no Dad: no Sickle Cell Disease/Trait Mom: no Dad: no Hemophilia Mom: no Dad: no Muscular Dystrophy Mom: no Dad: no Cystic Fibrosis Mom: no Dad: no Floyd Chorea Mom: no Dad: no Mental Retardation Mom: no Dad: no Fragile X Mom: no Dad: no Other Genetic/Chromosomal Disorder Mom: no Dad: no Child w/other defect Mom: no Dad: no Enviromental Exposures Xray Exposure: no Medication, drug, or alcohol use since LMP: no Exposure to Cat Liter: no Active Medications: None Current Allergies (reviewed today): No known allergies Past History - Obstetrical History : 4 Medications and Allergies Allergies Allergy/AdvReac Type Severity Reaction Status Date / Time Latex, Natural Rubber Allergy Mild Itching Verified 01/13/18 13:43 Home Medications Medication Instructions Recorded Confirmed Last Taken Type Labetalol HCl 200 tab PO BID 01/13/18 01/13/18 12/11/19 22:00 History Ibuprofen [Motrin] 600 mg PO Q8H PRN #30 tablet 01/16/18 Unknown Rx NIFEdipine XL [Procardia Xl] 60 mg PO QDAY #30 tablet 01/16/18 Unknown Rx labetaloL [Labetalol 200mg TAB] 200 mg PO TID #60 tablet 01/16/18 12/11/19 Unknown Rx oxyCODONE /ACETAMINOPHEN [Percocet 1 tab PO Q6HR PRN #20 tablet 01/16/18 Unknown Rx 5/325] Docusate Sodium [Colace] 100 mg PO BID #30 capsule 12/12/19 Unknown Rx Ferrous Sulfate [Feosol 325 MG tab] 325 mg PO BID #90 tablet 12/12/19 Unknown Rx Ibuprofen [Motrin 800 MG tab] 800 mg PO TID PRN #30 tablet 12/12/19 Unknown Rx Lidocain2.5%/Prilocai2.5% [Emla] 5 gm TP ONCE #1 tube 12/12/19 Unknown Rx oxyCODONE /ACETAMINOPHEN [Percocet 1 - 2 tab PO Q4HR PRN #14 tablet 12/12/19 Unknown Rx 5/325 mg] Active Meds: Active Medications Acetaminophen (Tylenol) 650 mg PO Q6H [facility] Last Admin: 12/12/19 14:05 Dose: 650 mg Documented by: Ferrous Sulfate (Feosol) 325 mg PO TID [facility] Last Admin: 12/12/19 20:31 Dose: 325 mg Documented by: Oxytocin/Sodium Chloride (Pitocin/Ns 20 Unit/1000ml Drip) 20 units in 1,000 mls @ 125 mls/hr IV DIRECT ANSHU Lactated Ringer's (Lactated Ringers) 1,000 mls @ 125 mls/hr IV DIRECT [facility] Magnesium Sulfate (Magnesium Sulfate 40gm/1000ml) 40 gm in 1,000 mls @ 50 mls/hr IV DIRECT ANSHU Last Admin: 12/13/19 02:40 Dose: 2 gm/hr, 50 mls/hr Documented by: Labetalol HCl (Labetalol) 300 mg PO BID [facility] Last Admin: 12/12/19 22:00 Dose: 300 mg Documented by: Metoclopramide HCl (Reglan) 10 mg IV Q6H PRN PRN Reason: Nausea And Vomiting Last Admin: 12/12/19 04:20 Dose: 10 mg Documented by: Metoclopramide HCl (Reglan) 10 mg PO Q6H PRN PRN Reason: Nausea And Vomiting Mineral Oil (Mineral Oil) 30 ml PO QHS PRN PRN Reason: Constipation Morphine Sulfate (Morphine) 2 mg IV Q4H PRN PRN Reason: Pain, Moderate (4-6) Morphine Sulfate (Morphine) 4 mg IV Q4H PRN PRN Reason: Pain , Severe (7-10) Last Admin: 12/13/19 06:26 Dose: 4 mg Documented by: Naloxone HCl (Naloxone) 0.2 mg IV Q2MIN PRN PRN Reason: Res Rate </= 8 or 02 SAT < 92% Ondansetron HCl (Zofran) 4 mg IV Q8H PRN PRN Reason: Nausea And Vomiting Oxycodone/Acetaminophen (Percocet 5/325) 2 tab PO Q6H PRN PRN Reason: Pain, Moderate (4-6) - Vital Signs Vital signs: Vital Signs Pulse BP 110 H 179/102 12/11/19 23:14 12/11/19 23:14 Temp Pulse Resp BP Pulse Ox 97.7 F 84 18 154/87 78 L 12/13/19 07:42 12/13/19 07:29 12/13/19 07:28 12/13/19 07:29 12/13/19 07:03 Results Result Diagrams: 12/12/19 19:09 12/12/19 00:34 Abnormal lab results 12/12/19 12/12/19 12/12/19 Range/Units 09:48 19:09 19:09 Hgb 8.4 L (10.1-14.3) gm/dl Hct 26.2 L (30.3-42.9) % Magnesium 4.00 H 5.60 H (1.7-2.3) mg/dL 12/12/19 Range/Units 23:06 Hgb (10.1-14.3) gm/dl Hct (30.3-42.9) % Magnesium 5.20 H (1.7-2.3) mg/dL All other labs normal. Assessment and Plan FHT's good per RN see orders - Patient Problems (1) 35 weeks gestation of Current Visit: No Status: Acute (2) Chronic hypertension with superimposed pre-eclampsia Current Visit: No Status: Acute (3) IUGR (intrauterine growth restriction) Current Visit: No Status: Acute (4) care insufficient Current Visit: No Status: Acute (5) Twin gestation in third trimester Current Visit: No Status: Acute
--- NOTE | 2019-12-13 09:34 | Progress Note ---
Assessment and Plan - Patient Problems (1) Chronic hypertension with superimposed pre-eclampsia Onset Date: ~12/13/19 Current Visit: No Status: Acute Plan to address problem: BP 150-130/80-60 No c/o QUINTANILLA, blurred vision, chest pain. Will continue Labetalol 300mg po BID. (2) delivery delivered Onset Date: ~12/12/19 Current Visit: Yes Status: Acute Plan to address problem: Day # 1 s/p c/s for twin gestation distress Doing well H&H 04/14 No s/sx of anemia Dressing D&I removed this AM. P: continue pathway Advance diet and activity as tolerated. One baby in room with pt doing well the other remains in NICU stable. Subjective - Subjective Date of service: 12/13/19 (pt in good spirits; now on M/B unit) Principal diagnosis: Day #1 s/p primary c/s twin gestation Patient reports: appetite normal, voiding normally, pain well controlled, ambulating normally : doing well, in NICU Objective - Vital Signs Latest vital signs: Vital Signs Temp Pulse Resp BP BP Pulse Ox 12/13/19 07:42 97.7 F 12/13/19 07:29 84 154/87 12/13/19 07:28 84 18 154/87 12/13/19 07:03 78 L 12/13/19 06:58 54 L 86 12/13/19 06:54 82 97 12/13/19 06:49 80 98 12/13/19 06:44 80 98 12/13/19 06:39 81 98 12/13/19 06:34 84 98 12/13/19 06:29 96 H 98 12/13/19 06:24 88 96 12/13/19 06:19 87 97 12/13/19 06:14 84 98 12/13/19 06:09 84 98 12/13/19 06:04 79 99 12/13/19 05:59 73 98 12/13/19 05:54 75 98 12/13/19 05:49 75 98 12/13/19 05:44 74 98 12/13/19 05:39 73 98 12/13/19 05:34 70 97 12/13/19 05:29 72 97 12/13/19 05:24 69 97 12/13/19 05:19 68 93 12/13/19 05:14 73 95 04/25/20 05:13 69 86 04 05:09 71 97 12/13/19 05:04 83 96 12/13/19 05:03 75 93 12/13/19 04:59 78 98 04 04:54 88 98 12/13/19 04:49 82 98 12/13/19 04:44 79 98 12/13/19 04:40 80 144/77 12/13/19 04:39 79 98 12/13/19 04:34 78 97 12/13/19 04:29 94 H 98 12/13/19 04:24 78 97 12/13/19 04:19 77 97 12/13/19 04:14 89 97 12/13/19 04:09 85 98 12/13/19 04:04 86 98 12/13/19 03:59 85 98 12/13/19 03:54 86 97 12/13/19 03:49 76 97 12/13/19 03:44 75 97 12/13/19 03:40 70 134/74 04 03:39 77 98 12/13/19 03:34 75 98 12/13/19 03:29 75 98 12/13/19 03:24 78 98 12/13/19 03:19 74 98 12/13/19 03:14 75 98 12/13/19 03:09 75 99 12/13/19 03:04 75 99 12/13/19 02:59 88 98 12/13/19 02:54 87 98 12/13/19 02:49 88 99 12/13/19 02:44 86 97 12/13/19 02:40 87 143/79 12/13/19 02:39 85 98 12/13/19 02:34 76 99 12/13/19 02:29 87 98 12/13/19 02:24 82 98 12/13/19 02:19 80 98 12/13/19 02:14 74 98 04 02:10 72 139/69 04 02:09 76 98 12/13/19 02:04 76 98 12/13/19 01:59 75 98 04 01:54 75 98 04 01:49 75 98 12/13/19 01:44 75 98 12/13/19 01:40 71 140/70 12/13/19 01:39 80 98 12/13/19 01:34 78 98 12/13/19 01:29 76 98 12/13/19 01:24 76 98 12/13/19 01:19 78 98 12/13/19 01:14 78 98 12/13/19 01:10 73 147/76 12/13/19 01:09 81 97 12/13/19 01:04 84 95 12/13/19 00:59 91 H 97 12/13/19 00:54 89 97 12/13/19 00:50 84 91 12/13/19 00:49 82 98 12/13/19 00:44 76 97 12/13/19 00:40 75 132/68 12/13/19 00:39 78 97 12/13/19 00:34 76 97 12/13/19 00:29 78 96 12/13/19 00:24 78 96 12/13/19 00:19 77 97 12/13/19 00:14 76 98 12/13/19 00:10 78 145/74 12/13/19 00:09 87 99 12/13/19 00:04 86 98 12/12/19 23:59 78 96 12/12/19 23:54 85 99 12/12/19 23:49 80 99 12/12/19 23:44 92 H 99 12/12/19 23:40 90 167/80 0420 23:39 91 H 99 12/12/19 23:34 89 100 20 23:29 81 98 12/12/19 23:24 97.3 F L 86 20 153/83 96 12/12/19 23:19 86 99 20 23:14 87 97 20 23:10 86 153/83 0420 23:09 88 98 20 23:04 85 97 2420 22:59 84 99 20 22:54 79 98 20 22:49 91 H 98 20 22:44 83 98 20 22:40 88 159/81 042420 22:39 89 99 20 22:36 87 92 20 22:34 85 98 20 22:29 83 99 04/24/20 22:24 88 98 04/24/20 22:19 85 99 04/24/20 22:14 86 98 04/24/20 22:10 84 147/83 04/24/20 22:09 88 98 04/24/20 22:04 86 98 04/24/20 21:59 91 H 96 04/24/20 21:54 83 98 0424/20 21:49 92 H 99 0424/20 21:44 85 99 04/24/20 21:40 85 147/86 0424/20 21:39 87 98 04/24/20 21:35 86 90 04/24/20 21:34 86 95 04/24/20 21:29 83 96 04/24/20 21:24 79 97 04/24/20 21:19 81 98 04/24/20 21:14 78 98 04/24/20 21:10 74 176/91 0424/20 21:09 82 98 04/24/20 21:04 82 98 04/24/20 20:59 87 95 0424/20 20:54 82 96 04/24/20 20:49 82 97 04/24/20 20:48 81 91 04/24/20 20:44 76 98 04/24/20 20:42 97.7 F 77 20 180/95 100 04/24/20 20:41 77 180/95 0424/20 20:39 76 99 04/24/20 20:34 83 99 04/24/20 20:30 21 04/24/20 20:29 75 98 04/24/20 20:24 79 99 04/24/20 20:21 78 84 04/24/20 20:19 80 98 04/24/20 20:14 85 96 04/24/20 20:13 81 93 04/24/20 20:11 80 190/84 04/24/20 20:09 91 H 97 04/24/20 20:04 83 97 04/24/20 19:59 82 97 04/24/20 19:54 82 96 04/24/20 19:49 84 97 04/24/20 19:44 79 99 04/24/20 19:41 82 169/82 93 04/24/20 19:39 81 98 04/24/20 19:34 82 99 04/24/20 19:29 85 98 04/24/20 19:24 77 99 04/24/20 19:19 77 99 04/24/20 19:14 88 98 04/24/20 19:10 80 145/70 04/20 19:09 80 96 04//20 19:04 81 99 04/24/20 18:59 77 99 0420 18:54 83 99 0420 18:49 83 100 20 18:44 77 99 0420 18:40 85 139/75 04/20 18:39 84 99 0420 18:34 91 H 100 20 18:29 81 99 0420 18:24 82 99 0420 18:19 87 99 0420 18:14 79 99 0420 18:11 97.9 F 12/12/19 18:10 80 146/79 20 18:09 80 99 0420 18:04 82 99 20 17:59 82 98 20 17:54 80 99 0420 17:49 83 97 20 17:44 84 99 0420 17:40 77 156/89 0420 17:39 83 98 12/11/20 17:34 86 100 04/20 17:29 79 100 04/20 17:24 83 100 20 17:19 83 100 20 17:14 79 99 0420 17:10 80 157/83 20 17:09 86 97 20 17:04 75 99 0420 16:59 82 98 2420 16:54 74 100 04/24/20 16:49 77 100 04/24/20 16:44 83 98 04/24/20 16:40 89 148/71 0420 16:39 84 99 0420 16:34 74 98 04/24/20 16:29 74 98 /24/20 16:24 74 97 04/24/20 16:19 74 98 04/24/20 16:14 72 98 04/24/20 16:10 72 137/80 0420 16:09 74 97 04/24/20 16:04 77 97 04/20 15:59 72 98 04/20 15:54 73 98 /20 15:49 74 98 20 15:44 75 98 0420 15:40 74 152/86 20 15:39 84 97 12/12/19 15:38 85 93 12/12/19 15:34 75 98 20 15:29 77 97 20 15:24 75 97 0420 15:19 75 97 0420 15:14 78 98 04 15:10 76 140/85 12/12/19 15:09 80 98 12/12/19 15:04 74 98 12/12/19 14:59 74 98 12/12/19 14:54 75 97 12/12/19 14:49 73 97 12/12/19 14:44 79 100 12/12/19 14:40 74 142/84 12/12/19 14:39 81 100 12/12/19 14:34 81 100 12/12/19 14:29 87 99 12/12/19 14:24 80 99 12/12/19 14:19 80 100 12/12/19 14:14 83 99 12/12/19 14:10 83 146/87 12/12/19 14:09 85 96 12/12/19 14:04 75 98 12/12/19 13:59 77 98 12/12/19 13:54 77 97 12/12/19 13:49 77 97 12/12/19 13:44 85 98 12/12/19 13:40 82 140/83 04 13:39 85 99 0420 13:34 80 99 12/12/19 13:29 83 99 12/12/19 13:24 86 98 12/12/19 13:19 83 97 12/12/19 13:14 84 96 04 13:10 83 139/85 0420 13:09 83 99 04 13:04 84 98 12/12/19 12:59 81 98 12/12/19 12:54 76 97 12/12/19 12:49 79 98 12/12/19 12:44 83 100 04/24/20 12:40 78 162/86 0420 12:39 83 100 0420 12:34 85 100 0420 12:29 80 99 0420 12:24 81 100 20 12:19 82 98 0420 12:14 83 99 12/12/19 12:10 85 148/87 04 12:09 87 99 12/12/19 12:04 92 H 99 12/12/19 12:02 85 163/88 0420 11:59 82 100 0420 11:54 85 98 12/12/19 11:49 83 98 12/12/19 11:44 75 100 12/12/19 11:40 81 163/88 12/12/19 11:39 87 99 12/12/19 11:34 81 99 12/12/19 11:29 75 100 12/12/19 11:24 89 98 12/12/19 11:19 87 97 12/12/19 11:14 83 99 12/12/19 11:10 82 144/82 12/12/19 11:09 83 97 04 11:04 87 99 04 10:59 85 99 12/12/19 10:54 85 98 12/12/19 10:49 88 100 12/12/19 10:44 87 99 12/12/19 10:40 83 138/93 12/12/19 10:39 83 97 12/12/19 10:34 85 100 12/12/19 10:29 86 99 12/12/19 10:24 79 99 12/12/19 10:19 83 100 12/12/19 10:14 82 100 12/12/19 10:10 86 143/93 20 10:09 93 H 98 20 10:04 87 98 20 09:59 84 98 20 09:54 85 99 12/12/19 09:49 86 98 12/12/19 09:44 82 99 0420 09:40 86 140/86 04 09:39 85 97 12/12/19 09:34 75 97 Intake and Output 12/12/19 12/13/19 12/13/19 22:59 06:59 14:59 Intake Total 1050 Output Total 2300 4000 Balance -1250 -4000 Intake: IV 1050 ANCEF/NS 1 GM/50 ML 1 gm 50 In 50 ml @ 100 mls/hr IV Q8H ANSHU Rx#:[id number] MAGNESIUM SULFATE 40GM/ 1000 1000ML 40 gm In 1,000 ml @ 2 GM/HR 50 mls/hr IV DIRECT ANSHU Rx#:[id number] Output: Urine 2300 4000 Indwelling Catheter 2300 Uretheral (Simmons) 4000 Other: Total, Output Amount 200 - Exam Breasts: Present: normal Cardiovascular: Present: Regular rate Lungs: Present: Clear to auscultation Abdomen: Present: normal appearance, soft Uterus: Present: normal, firm, fundal height below umbilicus Extremities: Present: normal Deep Tendon Reflex Grade: Normal +2 Incision: Present: normal, dry, intact, dressed (being removed) - Labs Labs: Abnormal lab results 12/12/19 12/12/19 12/12/19 Range/Units 09:48 19:09 19:09 Hgb 8.4 L (10.1-14.3) gm/dl Hct 26.2 L (30.3-42.9) % Magnesium 4.00 H 5.60 H (1.7-2.3) mg/dL 12/12/19 Range/Units 23:06 Hgb (10.1-14.3) gm/dl Hct (30.3-42.9) % Magnesium 5.20 H (1.7-2.3) mg/dL
[2019-12-13] MEDS: FERROUS SULFATE 325 MG TAB PO SCH ×3 (10:49→20:29)
[2019-12-13] MEDS: oxyCODONE /ACETAMINOPHEN 5-325MG TAB PO PRN ×3 (10:52→20:25)
[2019-12-13] MEDS ORDERED: MEASLES, MUMPS & RUBELLA 12,500 UNIT/0.5 ML VACCINE SUB-Q ONE (12:32)
[2019-12-13] MEDS: ACETAMINOPHEN 325 MG TAB PO SCH (20:00)
[2019-12-13] MEDS: IBUPROFEN 800 MG TAB PO PRN (23:24)
[2019-12-13] MEDS: KETOROLAC 30 MG/1 ML INJ IV SCH (23:43)
[2019-12-14] MEDS: oxyCODONE /ACETAMINOPHEN 5-325MG TAB PO PRN ×3 (02:57→23:35)
[2019-12-14] MEDS: ACETAMINOPHEN 325 MG TAB PO SCH (03:00)
[2019-12-14] MEDS: MAGNESIUM HYDROXIDE (MOM) ORAL LIQD UDC PO PRN ×2 (03:27→12:19)
--- NOTE | 2019-12-14 06:44 | Discharge Summary ---
Providers - Providers Date of Admission: 12/11/19 21:52 Date of discharge: 12/14/19 (Pt agrees to d/c; May delay until tomorrow if baby in NICU can go tomorrow) Attending physician: DEANDRA LARSON Primary care physician: DEANDRA LARSON Hospitalization Reason for admission: IUP - (twin gestation) Delivery: Procedure: section, primary low transverse Episiotomy: none Laceration: none Incision: normal, dry, intact Other procedures: none complications: none Discharge diagnosis: delivery [place] baby: twins Hospital course: uncomplicated section; PreE; Twins Pt resting no c/o voiced. Desires d/c today if Baby in NICU is going to have to stay. She is aware she cannot return once d/c except to p/u baby. BP 150-140/80-70 denies QUINTANILLA, blurred vision, chest pain. RX given for Labetalol 300mg po BID. BP cuff sent to [facility] for home monitoring of pressure. Incision D&I Lochia scant. P: d/c home today if appropriate RTO 1 week for PP and BP check. Condition at discharge: Good Disposition: DC-01 TO HOME OR SELFCARE - Discharge Diagnoses (1) Chronic hypertension with superimposed pre-eclampsia Status: Acute Comment: RTO 1 wk BP check Cont. Labetalol 300 BID (2) delivery delivered Status: Acute Comment: RTO 1 wk for postop visit Plan - Discharge Medications Prescriptions: Docusate Sodium [Colace] 100 mg PO BID #30 capsule Lidocain2.5%/Prilocai2.5% [Emla] 5 gm TP ONCE #1 tube Ferrous Sulfate [Feosol 325 MG tab] 325 mg PO BID #90 tablet labetaloL [Labetalol 200mg TAB] 300 mg PO BID #60 tablet Ibuprofen [Motrin 800 MG tab] 800 mg PO TID PRN #30 tablet PRN Reason: Pain oxyCODONE /ACETAMINOPHEN [Percocet 5/325 mg] 1 - 2 tab PO Q4HR PRN #14 tablet PRN Reason: Pain - Provider Discharge Summary Activity: routine, no sex for 6 weeks, no heavy lifting 4 weeks, no strenuous exercise Diet: routine Instructions: routine Additional instructions: [] Smoking cessation referral if applicable(refer to patient education folder for contact #) [] Refer to [facility] Booklet Call your doctor immediately for: * Fever > 100.5 * Heavy vaginal bleeding ( >1 pad per hour) * Severe persistent headache * Shortness of breath * Reddened, hot, painful area to leg or breast * Drainage or odor from incision. * Keep incision clean and dry at all times and follow doctor's instructions regarding bathing/showering - Follow up plan Follow up: DEANDRA LARSON MD [Primary Care Provider] - 7 Days (Congratulations! Please call and schedule your visit and blood pressure check in one week. [phone]. Take medications as prescribed. 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 Take your blood pressure once everyday, write it down and bring it with you to your office visit. Call if your blood pressure is greater than 160/100. Call with headache, blurred vision, chest pain. Call with any concerns.)
[2019-12-14] MEDS: FERROUS SULFATE 325 MG TAB PO SCH ×3 (09:10→21:46)
[2019-12-14] MEDS: IBUPROFEN 800 MG TAB PO PRN ×2 (09:10→16:33)
[2019-12-14] MEDS ORDERED: medroxyPROGESTERone ACETATE 150 MG/ML SYRINGE IM ONE (10:00)
[2019-12-15] MEDS: IBUPROFEN 800 MG TAB PO PRN ×2 (03:53→13:03)
[2019-12-15] MEDS ORDERED: TETANUS,DIPH,PERTUSS(ACELL) VACCINE 0.5 ML SYRINGE IM ONE (05:00)
[2019-12-15] MEDS: oxyCODONE /ACETAMINOPHEN 5-325MG TAB PO PRN (05:18)
[2019-12-15] MEDS: FERROUS SULFATE 325 MG TAB PO SCH ×2 (09:33→13:00)
[2019-12-15] MEDS: ACETAMINOPHEN 325 MG TAB PO SCH (09:40)
[2019-12-15 16:01] VITALS: BP 143/77
== END 2019-12-15 16:45 | disposition home or self-care (01) | DRG 765 ==
LOC: LD 21:52 → OB 12-13 08:39
PROVIDERS: ADMIT Obstetrics & Gynecology; ATTEND Obstetrics & Gynecology
PROC: 10D00Z1 Extraction of Products of Conception, Low, Open Approach (ICD-10-PCS; principal; 2019-12-12)
PROC: 3E0134Z Introduction of Serum, Toxoid and Vaccine into Subcutaneous Tissue, Percutaneous Approach (ICD-10-PCS; 2019-12-13)
PROC: 3E0234Z Introduction of Serum, Toxoid and Vaccine into Muscle, Percutaneous Approach (ICD-10-PCS; 2019-12-15)
DX: O36.5932 Maternal care for other known or suspected poor fetal growth, third trimester, fetus 2 (principal); O60.14X1 Preterm labor third trimester with preterm delivery third trimester, fetus 1; O60.14X2 Preterm labor third trimester with preterm delivery third trimester, fetus 2; O30.003 Twin pregnancy, unspecified number of placenta and unspecified number of amniotic sacs, third trimester; O99.214 Obesity complicating childbirth; E66.9 Obesity, unspecified; O11.4 Pre-existing hypertension with pre-eclampsia, complicating childbirth; Z37.2 Twins, both liveborn; Z3A.35 35 weeks gestation of pregnancy; Z23 Encounter for immunization; Z91.040 Latex allergy status
CPT/HCPCS: 36415; 59025; 74018; 76815; 76819; 80307; 81001; 82565; 83615; 83735; 84450; 84460; 84550; 85014; 85018; 85027; 86592; 86762; 86850; 86900; 86901; 87806; 88307; 90471; 90715; G0378; J0290; J0330; J0360; J0690; J1170; J1885; J2270; J2405; J2590; J2704; J2765; J3475; J7120

== ENCOUNTER 2021-10-23 00:07 | Inpatient (IN) | payer MEDICAID ==
[2021-10-23] MEDS ORDERED: NIFEdipine XL 30 MG TAB PO ONE (01:20)
[2021-10-23 01:45] LABS: Hematocrit 29.3 % (30.3-42.9); Hemoglobin 9.3 gm/dl (10.1-14.3); Mean Corpuscular HGB Conc 32 % (30-34); Mean Corpuscular Volume 80 fl (79-97); Platelet Count 238 K/mm3 (140-440); Red Blood Count 3.66 M/mm3 (3.65-5.03); Red Cell Distribution Width 17.3 % (13.2-15.2)
[2021-10-23 01:59] LABS: Alanine Aminotransferase 8 units/L (7-56)
[2021-10-23] MEDS ORDERED: FAMOTIDINE 20 MG/2 ML INJ IV ONE (02:27)
[2021-10-23] MEDS ORDERED: BICITRA ORAL LIQD 30ML PO ONE (02:27)
[2021-10-23] MEDS ORDERED: LACTATED RINGERS 1,000 ML IV SCH (02:30)
[2021-10-23] MEDS ORDERED: LIDOCAINE MPF (2%) 20 MG/1 ML VIAL 5 ML ONE (02:39)
[2021-10-23] MEDS ORDERED: MAGNESIUM SULFATE 4 GM/100 ML BAG IV ONE (02:39)
[2021-10-23] MEDS ORDERED: BUPIVACAINE/PF (0.5%) 5 MG/1 ML 30 ML VIAL INFILTRATI ONE (02:39)
[2021-10-23] MEDS ORDERED: KETOROLAC 30 MG/1 ML INJ ONE (02:39)
[2021-10-23] MEDS ORDERED: MORPHINE PF 10MG/10 ML AMPULE ONE (02:40)
[2021-10-23] MEDS ORDERED: ONDANSETRON 4 MG/2 ML INJ ONE (02:40)
[2021-10-23] MEDS ORDERED: hydrALAZINE 20 MG/1 ML INJ IV ONE (02:48)
[2021-10-23 02:58] LABS: Basophils # (Auto) 0.1 K/mm3 (0.0-0.1); Basophils % (Auto) 0.6 % (0.0-1.8); Eosinophils # (Auto) 0.1 K/mm3 (0.0-0.4); Eosinophils % (Auto) 0.6 % (0.0-4.3); Hematocrit 26.9 % (30.3-42.9); Lymphocytes # (Auto) 2.3 K/mm3 (1.2-5.4); Lymphocytes % (Auto) 24.7 % (13.4-35.0); Mean Corpuscular HGB Conc 34 % (30-34); Mean Corpuscular Volume 79 fl (79-97); Monocytes # (Auto) 0.6 K/mm3 (0.0-0.8); Monocytes % (Auto) 6.7 % (0.0-7.3); Platelet Count 242 K/mm3 (140-440); Red Cell Distribution Width 17.3 % (13.2-15.2)
--- NOTE | 2021-10-23 02:59 | Anesthesia Day of Surgery ---
Anesthesia Day of Surgery - Day of Surgery Patient Examined: Yes Patient H&P Reviewed: Yes Patient is NPO: Yes Beta Blockers: No Cardiac Clearance: No Pulmonary Clearance: No Lion's Test: N/A
[2021-10-23] MEDS ORDERED: OXYTOCIN DRIP 30 UNITS/500 ML BAG IV SCH ×2 (03:00→05:57)
[2021-10-23] MEDS ORDERED: diphenhydrAMINE 50 MG/ML VIAL IV PRN (03:00)
[2021-10-23] MEDS ORDERED: PROMETHAZINE 25 MG TAB PO PRN (03:00)
[2021-10-23] MEDS ORDERED: MAGNESIUM SULFATE 40GM/1000ML 40 GM/1,000 ML BAG IV SCH ×2 (03:00→05:57)
[2021-10-23] MEDS ORDERED: NalbUPHINE 10 MG/1 ML INJ IV PRN (03:00)
[2021-10-23] MEDS ORDERED: PROMETHAZINE 25 MG RECT SUPP PR PRN (03:00)
[2021-10-23] MEDS ORDERED: ceFAZolin/Water 2 GM/20 ML 2 GM/20 ML SYRINGE IV NR (03:00)
[2021-10-23] MEDS ORDERED: NALOXONE 0.4 MG/1 ML INJ IV PRN ×2 (03:00→05:57)
[2021-10-23] MEDS ORDERED: ONDANSETRON 4 MG/2 ML INJ IV PRN (03:00)
--- NOTE | 2021-10-23 03:00 | Anesthesia Consultation ---
Anesthesia Consult and Med Hx Date of service: 10/23/21 - Airway Anesthetic Teeth Evaluation: Good ROM Head & Neck: Adequate Mental/Hyoid Distance: Adequate Mallampati Class: Class III Intubation Access Assessment: Probably Good - Pulmonary Exam CTA: Yes - Cardiac Exam Cardiac Exam: RRR - Pre-Operative Health Status ASA Pre-Surgery Classification: ASA3, Emergency Proposed Anesthetic Plan: Spinal - Pulmonary Hx Smoking: No Hx Asthma: No Hx Respiratory Symptoms: No SOB: No COPD: No Hx Pneumonia: No Hx Sleep Apnea: No - Cardiovascular System Hx Hypertension: Yes (PIH) Hx Coronary Artery Disease: No Hx Heart Attack/AMI: No Hx Angina: No Hx Percutaneous Transluminal Coronary Angioplasty (PTCA): No Hx Cardia Arrhythmia: No Hx Pacemaker: No Hx Internal Defibrillator: No Hx Valvular Heart Disease: No Hx Heart Murmur: No Hx Peripheral Vascular Disease: No - Central Nervous System Hx Neuromuscular Disorder: No Hx Seizures: No CVA: No Hx Back Pain: No Hx Psychiatric Problems: No - Gastrointestinal Hx Ulcer: No Hx Gastroesophageal Reflux Disease: No - Endocrine Hx Renal Disease: No Hx End Stage Renal Disease: No Hx Cirrhosis: No Hx Liver Disease: No Hx Insulin Dependent Diabetes: No Hx Non-Insulin Dependent Diabetes: No Hx Thyroid Disease: No Hx Hypothyroidism: No Hx Hyperthyroidism: No - Hematic Hx Anemia: No Hx Sickle Cell Disease: No - Other Systems Hx Alcohol Use: No Hx Substance Use: No Hx Cancer: No Hx Obesity: Yes - Additional Comments Anesthesia Medical History Comments: Previous c/s
[2021-10-23] MEDS ORDERED: METHYLERGONOVINE MALEATE 0.2 MG/ML VIAL IM ONE (03:07)
--- NOTE | 2021-10-23 03:26 | History and Physical Report ---
History of Present Illness Date of examination: 10/23/21 History of present illness: This 31-year-old black female who presented to labor and delivery with complaints of rupture membranes approximately 2130 with contractions. Patient has had no care with this ultrasound was compatible at approximately 37 weeks gestation and NADJA of 4 cm. Patient with a history of twin pregnancies and a previous section. Patient presented with elevated blood pressures systolic blood pressures 170s to 200 over diastolics of 100. Past History Past Medical History: hypertension Past Surgical History: section Social history: full code - Obstetrical History : 6 Para: 4 Hx # Term Pregnancies: 3 Number of Pregnancies: 1 (Twins) Spontaneous Abortions: 0 Induced : 1 Number of Living Children: 5 Medications and Allergies Allergies Allergy/AdvReac Type Severity Reaction Status Date / Time Latex, Natural Rubber Allergy Mild Itching Verified 01/13/18 13:43 Home Medications Medication Instructions Recorded Confirmed Last Taken Type Labetalol HCl 200 tab PO BID 01/13/18 12/14/19 12/11/19 22:00 History Ibuprofen [Motrin] 600 mg PO Q8H PRN #30 tablet 01/16/18 12/14/19 Unknown Rx NIFEdipine XL [Procardia Xl] 60 mg PO QDAY #30 tablet 01/16/18 12/14/19 Unknown Rx labetaloL [Labetalol 200mg TAB] 200 mg PO TID #60 tablet 01/16/18 12/14/19 12/14/19 15:21 Rx oxyCODONE /ACETAMINOPHEN [Percocet 1 tab PO Q6HR PRN #20 tablet 01/16/18 12/14/19 Unknown Rx 5/325] Docusate Sodium [Colace] 100 mg PO BID #30 capsule 12/12/19 Unknown Rx Ferrous Sulfate [Feosol 325 MG tab] 325 mg PO BID #90 tablet 12/12/19 Unknown Rx Ibuprofen [Motrin 800 MG tab] 800 mg PO TID PRN #30 tablet 12/12/19 Unknown Rx Lidocain2.5%/Prilocai2.5% [Emla] 5 gm TP ONCE #1 tube 12/12/19 Unknown Rx oxyCODONE /ACETAMINOPHEN [Percocet 1 - 2 tab PO Q4HR PRN #14 tablet 12/12/19 Unknown Rx 5/325 mg] labetaloL [Labetalol 200mg TAB] 300 mg PO BID #60 tablet 12/13/19 Unknown Rx Active Meds: Active Medications Citric Acid/Sodium Citrate (Bicitra Oral Liqd 30ml) 30 ml PO ONCE ONE Stop: 10/23/21 02:28 Diphenhydramine HCl (Diphenhydramine 50 Mg/Ml Vial) 12.5 mg IV Q2H PRN PRN Reason: Itching Famotidine (Famotidine 20 Mg/2 Ml Inj) 20 mg IV ONCE ONE Stop: 10/23/21 02:28 Hydralazine HCl (Hydralazine 20 Mg/1 Ml Inj) 10 mg IV ONCE ONE Stop: 10/23/21 02:49 Last Admin: 10/23/21 02:11 Dose: 10 mg Lactated Ringer's (Lactated Ringers) 1,000 mls @ 2,250 mls/hr IV PREOP ANSHU Stop: 10/24/21 02:57 Oxytocin/Sodium Chloride (Pitocin/Ns 30 Unit/500ml) 30 units in 500 mls @ 0 mls/hr IV TITR ANSHU; Protocol Cefazolin Sodium 3 gm/ Sodium (Chloride) 100 mls @ 100 mls/30 min IV PREOP NR; Protocol Stop: 10/23/21 23:41 Magnesium Sulfate (Magnesium Sulfate 40gm/1000ml) 40 gm in 1,000 mls @ 50 mls/hr IV DIRECT ANSHU Magnesium Sulfate (Magnesium Sulfate 4gm/100ml) 4 gm in 100 mls @ 300 mls/hr IV ONCE ONE Stop: 10/23/21 02:58 Metoclopramide HCl (Metoclopramide 10 Mg/2 Ml Inj) 10 mg IV ONCE ONE Stop: 10/23/21 03:28 Nalbuphine HCl (Nalbuphine 10 Mg/1 Ml Inj) 2.5 mg IV Q2H PRN PRN Reason: Itching Naloxone HCl (Naloxone 0.4 Mg/1 Ml Inj) 0.2 mg IV Q2MIN PRN PRN Reason: Res Rate </= 8 or 02 SAT < 92% Nifedipine (Nifedipine Xl 30 Mg Tab) 30 mg PO ONCE ONE Stop: 10/23/21 01:21 Last Admin: 10/23/21 01:15 Dose: 30 mg Ondansetron HCl (Ondansetron 4 Mg/2 Ml Inj) 4 mg IV Q8H PRN PRN Reason: Nausea And Vomiting Promethazine HCl (Promethazine 25 Mg Tab) 25 mg PO Q6H PRN PRN Reason: Nausea And Vomiting Promethazine HCl (Promethazine 25 Mg Rect Supp) 25 mg NV Q6H PRN PRN Reason: Nausea And Vomiting - Vital Signs Vital signs: Vital Signs Temp Pulse Resp BP Pulse Ox 98.2 F 94 H 14 181/92 98 10/23/21 00:24 10/23/21 00:24 10/23/21 00:24 10/23/21 00:24 10/23/21 00:24 Temp Pulse Resp BP Pulse Ox 98.2 F 89 14 178/105 99 10/23/21 00:24 10/23/21 03:07 10/23/21 00:24 10/23/21 02:46 10/23/21 03:07 - Physical Exam Breasts: Positive: deferred Abdomen: Positive: normal appearance, soft, other (Obese) Genitourinary (Female): Positive: normal external genitalia Uterus: Positive: enlarged - Obstetrical FHR: category 1 Uterine Contraction Pattern: Irregular Results Result Diagrams: 10/23/21 02:27 10/23/21 01:29 Abnormal lab results 10/23/21 10/23/21 10/23/21 Range/Units 00:55 01:29 02:27 RBC 3.40 L (3.65-5.03) M/mm3 Hgb 9.3 L 9.0 L (10.1-14.3) gm/dl Hct 29.3 L 26.9 L (30.3-42.9) % MCH 25 L 27 L (28-32) pg RDW 17.3 H 17.3 H (13.2-15.2) % Membranes Rupture Positive A (Negative) All other labs normal. Assessment and Plan - Patient Problems (1) Chronic hypertension with superimposed pre-eclampsia Onset Date: ~12/13/19 Current Visit: No Status: Acute Plan to address problem: We will start antihypertensive medication and magnesium sulfate prophylaxis moved to delivered. (2) care insufficient Current Visit: Yes Status: Acute Qualifiers: Trimester: third trimester Qualified Code(s): O09.33 - Supervision of with insufficient care, third trimester (3) Previous delivery affecting Current Visit: Yes Status: Acute Plan to address problem: Indication for section discussed. Patient informed the risks of the surgery include bleeding possibly bleeding heavy enough to require blood transfusion, infection possible damage to bowel bladder ureter. All questions answered. Patient agrees to proceed (4) Premature rupture of membranes (PROM), onset of labor within 24 hours, antepartum Current Visit: Yes Status: Acute (5) BMI 38.0-38.9,adult Current Visit: Yes Status: Acute (6) Premature rupture of membranes Current Visit: Yes Status: Acute Qualifiers: PROM onset of labor timing: onset of labor within 24 hours of rupture PROM gestational age: full term Qualified Code(s): O42.02 - Full-term premature rupture of membranes, onset of labor within 24 hours of rupture
[2021-10-23] MEDS ORDERED: METOCLOPRAMIDE 10 MG/2 ML INJ IV ONE (03:27)
[2021-10-23 03:29] LABS: Hepatitis C Virus Antibody Non-Reactive (NonReactive)
[2021-10-23] MEDS ORDERED: ePHEDrine SULFATE 50 MG/1 ML INJ ONE (03:36)
[2021-10-23] MEDS ORDERED: WATER FOR IRRIG STERILE 1,500 ML BOTTLE IR ONE (03:42)
[2021-10-23] MEDS ORDERED: SODIUM CHLORIDE 0.9% IRR 1,500 ML BOTTLE IR ONE (03:42)
--- NOTE | 2021-10-23 04:48 | Progress Note ---
Spinal Anesthesia Block - Spinal Anesthesia Block Start Time: 03:20 Stop Time: :25 Performed by:: GEORGE GRANT Procedure: Spinal anesthesia block is being performed for [c/s]. H&P, labs have been reviewed. Patient's questions and concerns have been answered. Informed consent has been performed. Timeout has was performed. Patient in sitting position on side of bed. Sterile prep and drape was performed. 3 mL 1% lidocaine skin wheal at L [3]-L [4]. Needle introducer advanced. 25-gauge spinal needle advanced, [+] CSF [-] blood. [Marcaine 10mg, Precedex 5mcg, and Duramorph 0.2mg] Spinal dose was given. All needles removed. Patient tolerated procedure well.
--- NOTE | 2021-10-23 05:00 | Operative Report ---
Operative Report Operative Report: Date of procedure: October 23, 2021 Pre-operative diagnosis: Intrauterine uterine at approximately 37 weeks with no care with premature rupture membranes, superimposed preeclampsia chronic hypertension previous section and morbid obesity Post-operative diagnosis: Same Procedure name(s): Repeat low transverse section Surgeon: Rocco Romero MD Senior Online Marketing Manager: TRINO Anesthesia: Spinal EBL: Quantitative blood loss 645 mL Complications: None Findings: Patient with some adhesions between the anterior uterus and bladder normal-appearing adnexa. Male weight 8 pounds 9 ounces Apgars 8 at 1 minute and 9 at 5 minutes Nuchal cord x1 Specimen(s): None Procedure: The patient was brought to the operating room. A spinal was placed without any complications. She was then placed in left lateral tilt. Prepped and draped in the usual sterile manner. After testing for adequate anesthesia level, a Pfannenstiel incision was made through her previous scar. This incision was taken down to the fascia. The fascia was then nicked in the midline. This incision was extended out laterally with Bain scissors. The fascia was then sharply and bluntly from the underlying rectus muscles. The rectus muscles were bluntly and sharply . The peritoneum was then entered with the hotbed lever operator's fingers. This incision was spread vertically with care not to damage the bladder below. The Oscar self-retaining tractor was then placed without any difficulty. The bladder flap was then formed sharply and bluntly with Metzenbaum scissors A transverse incision was made in lower uterine segment. This incision was extended laterally with the operators fingers. The amniotic sac was then entered bluntly with the hotbed lever operator's fingers. The infant was delivered from the vertex position. Bulb suction on the mother's abdomen. Cord was double clamped and cut. The was then passed to the nursery personnel who were in attendance. The above scores were given by the nursery personnel. The placenta was then bluntly removed. The u terus was then externalized and wiped clean the remaining products. The uterine incision was closed in layers. The first incision was closed in a locking manner using 0 Vicryl. This was followed by imbricating stitch also with 0 Vicryl. This closure was hemostatic additional [id number] suture. The bladder flap was copiously irrigated and found to be hemostatic. The pelvis was copiously irrigated and found to be hemostatic. The uterus was then placed back to the patient's abdomen. The retractors were removed. The rectus muscles were inspected and found to be hemostatic. The fascia was then closed in a running manner using 0 Vicryl. This incision was hemostatic irrigation Bovie. The skin was reapproximated with 4-0 Vicryl subcuticularly. Dermabond placed over the skin closure. The patient tolerated procedure well. Her urine was clear. The was admitted to the well baby nursery. The patient was accompanied to recovery room in good condition. Instrument count correct -3.
[2021-10-23] MEDS ORDERED: D5W/LACTATED RINGERS 1,000 ML IV SCH (05:57)
[2021-10-23] MEDS ORDERED: LANOLIN/ZINC/DIMETHICONE (LANSINOH) 7 GM TP PRN (05:57)
[2021-10-23] MEDS ORDERED: WITCH HAZEL/ GLYCERIN PAD TP PRN (05:57)
[2021-10-23] MEDS ORDERED: MAGNESIUM HYDROXIDE (MOM) ORAL LIQD UDC PO PRN (05:57)
[2021-10-23] MEDS ORDERED: LACTATED RINGERS 1,000 ML ONE ×2 (06:52→17:03)
[2021-10-23] MEDS: KETOROLAC 30 MG/1 ML INJ IV SCH ×3 (06:58→21:35)
[2021-10-23] MEDS ORDERED: FERROUS SULFATE 325 MG TAB PO SCH (10:00)
[2021-10-23] MEDS ORDERED: ceFAZolin/NS 1 GM/50 ML 1 GM/50 ML BAG IV SCH (10:00)
[2021-10-23] MEDS: HYDROcodone/ACETAMINOPHEN 5-325 MG TAB PO PRN ×2 (10:22→18:32)
--- NOTE | 2021-10-23 13:31 | Progress Note ---
Assessment and Plan Precautions and POC reviewed with pt. All questions addressed. - Patient Problems (1) BMI 38.0-38.9,adult Current Visit: Yes Status: Acute (2) delivery delivered Onset Date: ~12/12/19 Current Visit: No Status: Acute Plan to address problem: continue postoperative pathway (3) Chronic hypertension with superimposed pre-eclampsia Onset Date: ~12/13/19 Current Visit: No Status: Acute Plan to address problem: Magnesium Sulfate [id number] post delivery monitor VS and for changes in status, monitor for ssx of worsening condition antihypertensives as ordered Subjective - Subjective Date of service: 10/23/21 Principal diagnosis: s/p repeat Delivery, CHTN with superimposed Preeclampsia on Mag Patient reports: appetite normal, pain well controlled Tennyson: doing well Objective - Vital Signs Latest vital signs: Vital Signs Temp Pulse Resp BP BP Pulse Ox Pulse Ox 10/23/21 13:26 84 113/57 10/23/21 13:24 87 98 10/23/21 13:19 91 H 100 10/23/21 13:14 90 98 10/23/21 13:09 85 99 10/23/21 13:04 87 99 10/23/21 12:59 85 99 10/23/21 12:54 83 100 10/23/21 12:49 87 99 10/23/21 12:44 85 99 10/23/21 12:39 81 99 10/23/21 12:34 91 H 99 10/23/21 12:29 94 H 100 10/23/21 12:26 86 112/57 10/23/21 12:25 107 H 94 10/23/21 12:24 86 99 10/23/21 12:19 92 H 98 10/23/21 12:14 90 100 10/23/21 12:09 91 H 100 10/23/21 12:04 87 100 10/23/21 11:59 85 100 10/23/21 11:54 86 100 10/23/21 11:49 100 H 100 10/23/21 11:44 90 98 10/23/21 11:39 86 100 10/23/21 11:38 81 90/54 10/23/21 11:34 83 98 10/23/21 11:30 85 99/53 10/23/21 11:29 80 98 10/23/21 11:27 81 99/49 10/23/21 11:24 83 99 10/23/21 11:19 73 99 10/23/21 11:15 83 87 10/23/21 11:14 77 99 10/23/21 11:10 88 90 10/23/21 11:09 76 100 10/23/21 11:04 87 99 10/23/21 10:59 89 98 10/23/21 10:54 86 100 10/23/21 10:49 90 99 10/23/21 10:44 85 100 10/23/21 10:39 103 H 100 10/23/21 10:34 95 H 99 10/23/21 10:29 99 H 98 10/23/21 10:24 90 100 10/23/21 10:23 87 110/57 10/23/21 10:21 94 H 92 10/23/21 10:19 91 H 100 10/23/21 10:14 87 98 10/23/21 10:09 97 H 97 10/23/21 10:04 89 97 10/23/21 09:59 88 99 10/23/21 09:54 89 98 10/23/21 09:53 88 107/57 10/23/21 09:49 88 98 10/23/21 09:44 86 99 10/23/21 09:39 84 98 10/23/21 09:34 88 98 10/23/21 09:29 92 H 99 10/23/21 09:24 90 98 10/23/21 09:22 94 H 124/73 10/23/21 09:19 85 98 10/23/21 09:14 88 98 10/23/21 09:09 101 H 99 10/23/21 09:04 91 H 97 10/23/21 08:59 96 H 97 10/23/21 08:54 87 98 10/23/21 08:52 89 129/75 10/23/21 08:49 100 H 97 10/23/21 08:44 96 H 99 10/23/21 08:39 95 H 100 10/23/21 08:34 97 H 100 10/23/21 08:29 94 H 100 10/23/21 08:24 92 H 99 10/23/21 08:23 89 133/77 10/23/21 08:19 87 98 10/23/21 08:14 94 H 99 10/23/21 08:09 94 H 99 10/23/21 08:04 98 H 98 10/23/21 07:59 89 99 10/23/21 07:54 94 H 99 10/23/21 07:52 98 H 138/71 10/23/21 07:49 94 H 99 10/23/21 07:44 88 99 10/23/21 07:39 93 H 98 10/23/21 07:34 95 H 99 10/23/21 07:29 94 H 100 10/23/21 07:24 103 H 99 10/23/21 07:22 92 H 142/81 10/23/21 07:19 96 H 100 10/23/21 07:14 92 H 99 10/23/21 06:40 99 10/23/21 06:05 97 H 14 134/77 97 10/23/21 05:50 97.6 F 91 H 15 128/70 94 10/23/21 05:35 97 H 17 124/67 95 10/23/21 05:20 97 H 16 117/63 95 10/23/21 05:05 99 H 18 122/65 95 10/23/21 04:50 99 H 18 119/57 96 10/23/21 04:45 99 H 14 121/66 99 10/23/21 04:40 97.4 F L 101 H 14 124/60 96 10/23/21 03:07 89 99 10/23/21 03:02 57 L 95 10/23/21 03:01 63 91 10/23/21 02:57 104 H 100 10/23/21 02:52 66 70 L 10/23/21 02:51 66 L 10/23/21 02:47 80 99 10/23/21 02:46 68 178/105 90 10/23/21 02:42 59 L 90 10/23/21 02:40 90 87 10/23/21 02:37 45 L 69 L 10/23/21 02:32 81 100 10/23/21 02:27 96 H 100 10/23/21 02:25 82 94 10/23/21 02:22 96 H 100 10/23/21 02:19 25 L 80 L 10/23/21 02:17 98 H 99 10/23/21 02:11 62 204/99 10/23/21 01:53 101 H 99 10/23/21 01:38 70 216/95 10/23/21 01:25 91 H 96 10/23/21 01:24 84 221/106 93 10/23/21 01:20 93 H 98 10/23/21 01:17 77 83 L 10/23/21 01:15 91 H 98 10/23/21 01:10 79 98 10/23/21 01:08 88 185/86 10/23/21 01:05 92 H 98 10/23/21 01:00 116 H 99 10/23/21 00:58 90 179/87 10/23/21 00:55 92 H 98 10/23/21 00:53 90 204/105 10/23/21 00:50 88 100 10/23/21 00:45 94 H 98 10/23/21 00:40 94 H 98 10/23/21 00:37 96 H 181/92 94 10/23/21 00:35 101 H 97 10/23/21 00:24 98.2 F 94 H 14 181/92 98 Intake and Output 10/22/21 10/23/21 10/23/21 23:59 07:59 15:59 Intake Total 1950 Output Total 900 Balance 1050 Intake: IV 1950 Output: Urine 900 Uretheral (Simmons) 350 Other: Weight 240 lb Patient Weight 10/23/21 23:59 Weight 240 lb - Exam Breasts: Present: normal Cardiovascular: Present: Regular rate Lungs: Present: Normal air movement Abdomen: Present: normal appearance, soft. Absent: distention, tenderness, guarding Uterus: Present: normal, firm Extremities: Present: normal Incision: Present: normal, dry, intact - Labs Labs: Abnormal lab results 10/23/21 10/23/21 10/23/21 Range/Units 00:55 01:29 01:29 RBC (3.65-5.03) M/mm3 Hgb 9.3 L (10.1-14.3) gm/dl Hct 29.3 L (30.3-42.9) % MCH 25 L (28-32) pg RDW 17.3 H (13.2-15.2) % Magnesium (1.7-2.3) mg/dL Lactate Dehydrogenase 191 H (91-180) units/L Membranes Rupture Positive A (Negative) 10/23/21 10/23/21 10/23/21 Range/Units 02:27 06:46 12:27 RBC 3.40 L (3.65-5.03) M/mm3 Hgb 9.0 L (10.1-14.3) gm/dl Hct 26.9 L (30.3-42.9) % MCH 27 L (28-32) pg RDW 17.3 H (13.2-15.2) % Magnesium 3.30 H 4.50 H (1.7-2.3) mg/dL Lactate Dehydrogenase (91-180) units/L Membranes Rupture (Negative)
[2021-10-23 20:25] LABS: Hematocrit 18.1 % (30.3-42.9)
--- NOTE | 2021-10-23 21:14 | Event Note ---
Date: 10/23/21 Chart reviewed critical H/H noted. RN states lab did not inform her of the value. Spoked to patient presently on bedrest denies headache, SOB or p alpitations. Indication for and risks of blood transfusion given. Patient desire to have lab repeat to see if still critical before she she decide on receiving transfusion will repeat h/h in one hour
[2021-10-23 23:51] LABS: Hemoglobin 5.6 gm/dl (10.1-14.3)
[2021-10-24] MEDS ORDERED: SODIUM CHLORIDE 0.9% 500 ML 500 ML IV ONE (00:13)
[2021-10-24] MEDS ORDERED: MEASLES, MUMPS & RUBELLA 12,500 UNIT/0.5 ML VACCINE SUB-Q ONE (06:00)
--- NOTE | 2021-10-24 07:42 | Progress Note ---
Assessment and Plan - Patient Problems (1) care insufficient Current Visit: Yes Status: Acute Qualifiers: Trimester: third trimester Qualified Code(s): O09.33 - Supervision of with insufficient care, third trimester Plan to address problem: Case management consult placed. (2) delivery delivered Onset Date: ~12/12/19 Current Visit: No Status: Acute Plan to address problem: Continue with care on labor and delivery. Advance diet as tolerated. Encourage IS use. Encourage ambulation. (3) Chronic hypertension with superimposed pre-eclampsia Onset Date: ~12/13/19 Current Visit: No Status: Acute Plan to address problem: Continue with 200mg Labetalol BID. Continue to monitor blood pressures. Continue to monitor for s/sx of worsening pre eclampsia. (4) Anemia Current Visit: Yes Status: Acute Plan to address problem: Repeat H/H pending s/p 1 unit of transfusion of PRBCs. Pt currently asymptomatic. Subjective - Subjective Date of service: 10/24/21 Principal diagnosis: s/p rpt , POD #1, s/p mag, No PNC Interval history: Pt denies QUINTANILLA, blurred vision, spots before her eyes, chest pain, shortness of breath, and upper abdominal pain. Patient reports: appetite normal, voiding normally, flatus, pain poorly controlled : doing well Objective - Vital Signs Latest vital signs: Vital Signs Temp Pulse Resp BP BP Pulse Ox Pulse Ox 10/24/21 04:22 92 H 99 10/24/21 04:21 94 H 93 10/24/21 04:17 95 H 99 10/24/21 04:14 97 H 94 10/24/21 04:13 92 H 116/61 10/24/21 04:12 90 98 10/24/21 04:07 87 98 10/24/21 04:02 88 98 10/24/21 03:58 86 111/56 10/24/21 03:57 87 97 10/24/21 03:52 88 98 10/24/21 03:47 87 98 10/24/21 03:44 94 10/24/21 03:43 90 110/56 10/24/21 03:42 89 97 10/24/21 03:40 90 119/57 10/24/21 03:37 114 H 83 L 10/24/21 03:36 75 0 L 10/24/21 03:30 86 84 10/24/21 03:25 101 H 92 10/24/21 03:24 93 H 98 10/24/21 03:19 93 H 98 10/24/21 03:14 91 H 97 10/24/21 03:13 90 117/58 10/24/21 03:09 89 97 10/24/21 03:04 94 H 96 10/24/21 02:59 95 H 97 10/24/21 02:58 87 128/65 10/24/21 02:54 90 100 10/24/21 02:49 90 98 10/24/21 02:44 90 96 10/24/21 02:43 88 136/67 86 10/24/21 02:39 93 H 98 10/24/21 02:34 90 99 10/24/21 02:33 68 87 10/24/21 02:29 93 H 95 10/24/21 02:28 90 135/65 10/24/21 02:26 91 H 93 10/24/21 02:24 90 96 10/24/21 02:19 91 H 98 10/24/21 02:14 89 100 10/24/21 02:13 90 129/67 10/24/21 02:09 91 H 98 10/24/21 02:04 88 100 10/24/21 01:59 90 99 10/24/21 01:58 91 H 130/63 10/24/21 01:54 90 98 10/24/21 01:49 94 H 98 10/24/21 01:44 89 98 10/24/21 01:41 90 116/59 10/24/21 01:39 97 H 96 10/24/21 01:34 92 H 98 10/24/21 01:29 95 H 94 10/24/21 01:24 86 99 10/24/21 01:19 85 99 10/24/21 01:15 97 H 94 10/24/21 01:14 87 97 10/24/21 01:09 87 96 10/24/21 01:08 97 H 93 10/24/21 01:04 88 97 10/24/21 01:02 93 H 90 10/24/21 00:59 93 H 97 10/24/21 00:57 90 94 10/24/21 00:54 84 100 10/24/21 00:49 85 100 10/24/21 00:44 91 H 100 10/24/21 00:39 91 H 99 10/24/21 00:34 90 99 10/24/21 00:30 97 H 93 10/24/21 00:29 89 96 10/24/21 00:27 86 107/58 10/24/21 00:24 90 96 10/24/21 00:19 88 97 10/24/21 00:14 90 99 10/24/21 00:09 95 H 99 10/24/21 00:04 91 H 99 10/23/21 23:59 104 H 97 10/23/21 23:56 1 L 10/23/21 23:54 98 H 99 10/23/21 23:49 90 98 10/23/21 23:44 90 99 10/23/21 23:39 95 H 99 10/23/21 23:34 95 H 99 10/23/21 23:29 100 H 99 10/23/21 23:26 91 H 118/61 10/23/21 23:24 90 98 10/23/21 23:19 88 99 10/23/21 23:14 89 100 10/23/21 23:09 95 H 98 10/23/21 23:04 94 H 97 10/23/21 22:59 102 H 99 10/23/21 22:54 99 H 100 10/23/21 22:49 99 H 100 10/23/21 22:44 98 H 100 10/23/21 22:39 96 H 100 10/23/21 22:34 94 H 100 10/23/21 22:29 97 H 131/72 100 10/23/21 22:26 93 H 131/72 10/23/21 22:24 93 H 100 10/23/21 22:19 93 H 100 10/23/21 22:14 92 H 100 10/23/21 22:09 92 H 99 10/23/21 22:04 91 H 100 10/23/21 21:59 93 H 99 10/23/21 21:54 94 H 99 10/23/21 21:49 99 H 98 10/23/21 21:44 104 H 98 03 21:39 102 H 100 10/23/21 21:34 94 H 98 10/23/21 21:29 98 H 99 10/23/21 21:26 86 129/59 10/23/21 21:24 98 H 99 10/23/21 21:19 86 98 10/23/21 21:14 91 H 97 10/23/21 21:09 91 H 99 10/23/21 21:04 92 H 99 10/23/21 20:59 99 H 99 10/23/21 20:54 104 H 100 10/23/21 20:51 73 80 L 10/23/21 20:49 101 H 100 10/23/21 20:44 102 H 97 10/23/21 20:39 90 98 10/23/21 20:34 92 H 100 10/23/21 20:29 90 100 10/23/21 20:26 98 H 113/59 10/23/21 20:24 90 97 10/23/21 20:19 86 97 10/23/21 20:14 95 H 97 10/23/21 20:09 90 97 10/23/21 20:04 94 H 97 10/23/21 19:59 99 H 98 10/23/21 19:54 91 H 97 10/23/21 19:49 93 H 94 10/23/21 19:44 92 H 95 10/23/21 19:39 101 H 98 10/23/21 19:34 97 H 96 10/23/21 19:29 94 H 96 10/23/21 19:28 97.7 F 10/23/21 19:26 92 H 116/62 10/23/21 19:24 95 H 98 99 10/23/21 19:19 92 H 98 10/23/21 19:14 99 H 98 10/23/21 19:09 97 H 98 10/23/21 19:04 96 H 99 10/23/21 18:59 94 H 98 10/23/21 18:55 101 H 94 10/23/21 18:54 94 H 98 10/23/21 18:49 91 H 99 10/23/21 18:44 90 99 10/23/21 18:39 92 H 100 10/23/21 18:34 98 H 99 10/23/21 18:32 16 10/23/21 18:29 87 99 10/23/21 18:26 93 H 132/58 10/23/21 18:24 91 H 97 10/23/21 18:19 84 99 10/23/21 18:14 92 H 98 10/23/21 18:09 86 99 10/23/21 18:04 87 99 10/23/21 17:59 87 98 10/23/21 17:54 86 99 10/23/21 17:49 94 H 99 10/23/21 17:44 99 H 99 10/23/21 17:39 87 99 10/23/21 17:34 94 H 99 10/23/21 17:31 150/65 10/23/21 17:29 92 H 99 10/23/21 17:27 93 H 150/65 10/23/21 17:24 105 H 99 10/23/21 17:19 95 H 99 10/23/21 17:14 95 H 100 10/23/21 17:09 90 98 10/23/21 17:04 92 H 98 10/23/21 16:59 116 H 99 10/23/21 16:54 99 H 99 10/23/21 16:49 86 100 10/23/21 16:44 87 97 10/23/21 16:39 95 H 99 10/23/21 16:34 88 99 10/23/21 16:29 92 H 98 10/23/21 16:26 95 H 114/75 10/23/21 16:24 100 H 99 10/23/21 16:19 91 H 98 10/23/21 16:14 90 100 10/23/21 16:09 95 H 99 10/23/21 16:04 92 H 100 10/23/21 15:59 96 H 100 10/23/21 15:54 89 99 10/23/21 15:49 85 99 10/23/21 15:44 86 99 10/23/21 15:39 85 99 10/23/21 15:34 102 H 97 10/23/21 15:29 94 H 99 10/23/21 15:26 89 120/66 10/23/21 15:24 93 H 100 10/23/21 15:19 88 99 10/23/21 15:15 101 H 94 10/23/21 15:14 96 H 98 10/23/21 15:09 93 H 100 10/23/21 15:04 95 H 100 10/23/21 14:59 93 H 100 10/23/21 14:54 89 100 10/23/21 14:49 85 100 10/23/21 14:44 91 H 100 10/23/21 14:39 95 H 100 10/23/21 14:34 94 H 100 10/23/21 14:29 89 98 10/23/21 14:26 82 121/62 10/23/21 14:24 92 H 100 10/23/21 14:19 88 98 10/23/21 14:14 92 H 100 10/23/21 14:09 91 H 99 10/23/21 14:04 88 99 10/23/21 13:59 92 H 100 10/23/21 13:54 92 H 99 10/23/21 13:49 91 H 99 10/23/21 13:44 89 98 10/23/21 13:39 87 99 10/23/21 13:34 85 98 10/23/21 13:29 85 100 10/23/21 13:26 84 113/57 10/23/21 13:24 87 98 10/23/21 13:19 91 H 100 10/23/21 13:14 90 98 10/23/21 13:09 85 99 10/23/21 13:04 87 99 10/23/21 12:59 85 99 10/23/21 12:54 83 100 10/23/21 12:49 87 99 10/23/21 12:44 85 99 10/23/21 12:39 81 99 10/23/21 12:34 91 H 99 10/23/21 12:29 94 H 100 10/23/21 12:26 86 112/57 10/23/21 12:25 107 H 94 10/23/21 12:24 86 99 10/23/21 12:19 92 H 98 10/23/21 12:14 90 100 10/23/21 12:09 91 H 100 10/23/21 12:04 87 100 10/23/21 11:59 85 100 10/23/21 11:54 86 100 10/23/21 11:49 100 H 100 10/23/21 11:44 90 98 10/23/21 11:39 86 100 10/23/21 11:38 81 90/54 10/23/21 11:34 83 98 10/23/21 11:30 85 99/53 10/23/21 11:29 80 98 10/23/21 11:27 81 99/49 10/23/21 11:24 83 99 10/23/21 11:19 73 99 10/23/21 11:15 83 87 10/23/21 11:14 77 99 10/23/21 11:10 88 90 10/23/21 11:09 76 100 10/23/21 11:04 87 99 10/23/21 10:59 89 98 10/23/21 10:54 86 100 10/23/21 10:49 90 99 10/23/21 10:44 85 100 10/23/21 10:39 103 H 100 10/23/21 10:34 95 H 99 10/23/21 10:29 99 H 98 10/23/21 10:24 90 100 10/23/21 10:23 87 110/57 10/23/21 10:21 94 H 92 10/23/21 10:19 91 H 100 10/23/21 10:14 87 98 10/23/21 10:09 97 H 97 10/23/21 10:04 89 97 10/23/21 09:59 88 99 10/23/21 09:54 89 98 10/23/21 09:53 88 107/57 10/23/21 09:49 88 98 10/23/21 09:44 86 99 10/23/21 09:39 84 98 10/23/21 09:34 88 98 10/23/21 09:29 92 H 99 10/23/21 09:24 90 98 10/23/21 09:22 94 H 124/73 10/23/21 09:19 85 98 10/23/21 09:14 88 98 10/23/21 09:09 101 H 99 10/23/21 09:04 91 H 97 10/23/21 08:59 96 H 97 10/23/21 08:54 87 98 10/23/21 08:52 89 129/75 10/23/21 08:49 100 H 97 10/23/21 08:44 96 H 99 10/23/21 08:39 95 H 100 10/23/21 08:34 97 H 100 10/23/21 08:29 94 H 100 10/23/21 08:24 92 H 99 10/23/21 08:23 89 133/77 10/23/21 08:19 87 98 10/23/21 08:14 94 H 99 10/23/21 08:09 94 H 99 10/23/21 08:04 98 H 98 10/23/21 07:59 89 99 10/23/21 07:54 94 H 99 10/23/21 07:52 98 H 138/71 10/23/21 07:49 94 H 99 10/23/21 07:44 88 99 Intake and Output 10/23/21 10/24/21 10/24/21 22:59 06:59 14:59 Intake Total 250 Output Total 250 Balance -250 250 Intake: Blood Product 250 Leukoreduced Red Blood 250 Cells Unit [id number] Output: Urine 250 Indwelling Catheter 250 Other: Total, Output Amount 250 - Exam Narrative Exam: Pain medication increased to 2 [place] q 6 hrs. RN aware and will medicate patient for pain. Breasts: Present: deferred Cardiovascular: Present: Normal S1, Normal S2 Lungs: Present: Clear to auscultation Abdomen: Present: normal appearance, soft, other (Hypoactive bowel sounds) Uterus: Present: normal, firm Extremities: Present: normal Deep Tendon Reflex Grade: Normal +2 Incision: Present: normal, dry, intact, other (No s/sx of infection, no drainage noted. ) - Labs Labs: Abnormal lab results 10/23/21 10/23/21 10/23/21 Range/Units 01:30 06:46 12:27 Hgb (10.1-14.3) gm/dl Hct (30.3-42.9) % Magnesium 3.30 H 4.50 H (1.7-2.3) mg/dL Crossmatch See Detail 10/23/21 10/23/21 10/23/21 Range/Units 18:00 19:50 22:42 Hgb 6.0 L D 5.6 L* (10.1-14.3) gm/dl Hct 18.1 L* D 17.0 L* (30.3-42.9) % Magnesium 5.10 H (1.7-2.3) mg/dL Crossmatch 10/24/21 Range/Units 00:57 Hgb (10.1-14.3) gm/dl Hct (30.3-42.9) % Magnesium 5.00 H (1.7-2.3) mg/dL Crossmatch
[2021-10-24] MEDS: HYDROcodone/ACETAMINOPHEN 5-325 MG TAB PO PRN ×3 (07:49→21:13)
--- NOTE | 2021-10-24 08:09 | Ultrasound Report ---
US OB >= 14 weeks Fetus INDICATION / CLINICAL INFORMATION: NADJA EFW COMPARISON: None available. TECHNIQUE: Using a transcutaneous probe, multiple grayscale, color Doppler, and spectral Doppler imag es of the uterus and fetus were captured and stored. FINDINGS: Single cephalic fetus heart rate 126. Amniotic fluid index 4.2 cm, mild oligohydramnios. Biparietal Diameter = 8.75 cm = 33, 2 weeks, days Head Circumference = 30.6 cm = 34, 1 weeks, days Abdominal Circumference = 30.6 cm = 34, 4 weeks, days Femur Length = 6.58 cm = 33.6 weeks, days Average Ultrasound Age (AUA) = 34, 3 weeks, days Estimated weight 2433 g. IMPRESSION: 1. Single fetus with mild oligohydramnios amniotic fluid index 4.2 cm. 2. Estimated weight 2433 g. Signer Name: Carlos Dockery II, MD Signed: 10/23/2021 2:19 AM Workstation Name: [id number]
[2021-10-24 08:43] LABS: Hematocrit 21.1 % (30.3-42.9); Hemoglobin 6.8 gm/dl (10.1-14.3)
[2021-10-24] MEDS ORDERED: SODIUM CHLORIDE 0.9% 500 ML 500 ML IV NR (09:24)
[2021-10-24] MEDS: IBUPROFEN 600 MG TAB PO PRN ×2 (09:40→18:09)
[2021-10-24] MEDS ORDERED: diphenhydrAMINE 25 MG CAP PO PRN (12:00)
[2021-10-24 15:59] LABS: Amphetamine Screen,Urine Negative; Benzodiazepines Screen,Urine Negative; Cannabinoid Screen,Urine Negative; Cocaine Screen,Urine Negative; Methadone Screen,Urine Negative; Opiate Screen,Urine Negative
[2021-10-24 16:00] LABS: Bilirubin,Urine NEG (Negative); Blood,Urine LG (Negative); Color,Urine Red (Yellow); Urobilinogen,Urine < 2.0 mg/dL (<2.0)
[2021-10-24 16:01] LABS: RBC,Urine > 182.0 /HPF (0.0-6.0); WBC,Urine > 182.0 /HPF (0.0-6.0)
[2021-10-24] MEDS: ceFAZolin/NS 1 GM/50 ML 1 GM/50 ML BAG IV SCH (16:30)
[2021-10-24] MEDS: SIMETHICONE 80 MG CHEW TAB PO PRN (16:42)
[2021-10-24 19:10] LABS: Hematocrit 21.8 % (30.3-42.9); Hemoglobin 7.3 gm/dl (10.1-14.3)
[2021-10-24] MEDS: FERROUS SULFATE 325 MG TAB PO SCH (21:13)
[2021-10-25] MEDS: ceFAZolin/NS 1 GM/50 ML 1 GM/50 ML BAG IV SCH (00:25)
[2021-10-25] MEDS: SIMETHICONE 80 MG CHEW TAB PO PRN ×2 (01:41→08:49)
[2021-10-25] MEDS: IBUPROFEN 600 MG TAB PO PRN (01:41)
[2021-10-25] MEDS: HYDROcodone/ACETAMINOPHEN 5-325 MG TAB PO PRN ×3 (05:34→19:34)
[2021-10-25] MEDS: ONDANSETRON 4 MG/2 ML INJ IV PRN ×2 (08:30→23:03)
--- NOTE | 2021-10-25 09:58 | Progress Note ---
Assessment and Plan post transfusion H&H 7.3/21.8, she denies any s/s anemia. incision D&I, lochia scant, fundus firm. labetalol titrated for elevated blood pressure. - Patient Problems (1) Anemia Current Visit: Yes Status: Acute Qualifiers: Anemia type: iron deficiency (2) BMI 38.0-38.9,adult Current Visit: Yes Status: Acute (3) care insufficient Current Visit: Yes Status: Acute Qualifiers: Trimester: third trimester Qualified Code(s): O09.33 - Supervision of with insufficient care, third trimester (4) delivery delivered Onset Date: ~12/12/19 Current Visit: No Status: Acute (5) HTN (hypertension) Current Visit: No Status: Acute Qualifiers: Hypertension type: primary hypertension Qualified Code(s): I10 - Essential (primary) hypertension Plan to address problem: increase labetalol from BID to TID Consider consult with hospitalist if b/p continue to be uncontrolled with new regime. Subjective - Subjective Date of service: 10/25/21 Principal diagnosis: s/p rpt , POD #2, s/p mag, CHTN, No PNC Patient reports: appetite normal, voiding normally, pain well controlled, flatus, bowel movement, ambulating normally, no dizzy ambulation, no nauseated [place]: doing well Objective - Vital Signs Latest vital signs: Vital Signs Temp Pulse Resp BP BP Pulse Ox Pulse Ox 10/25/21 08:37 100 H 172/102 10/25/21 08:30 98 10/25/21 05:34 18 10/25/21 01:41 18 10/25/21 00:07 98.7 F 107 H 20 161/90 100 10/24/21 21:20 144/72 10/24/21 21:14 96 H 144/72 10/24/21 21:13 18 10/24/21 20:46 98.7 F 101 H 20 164/81 99 10/24/21 19:40 98 10/24/21 17:21 97.6 F 105 H 18 158/87 99 10/24/21 16:32 18 10/24/21 13:45 97.8 F 98 H 20 141/74 99 98 10/24/21 13:30 99 10/24/21 13:12 108 H 100 10/24/21 13:07 111 H 100 10/24/21 13:02 103 H 100 10/24/21 13:01 103 H 138/68 10/24/21 12:57 103 H 99 10/24/21 12:52 105 H 100 10/24/21 12:47 106 H 100 10/24/21 12:46 104 H 140/67 10/24/21 12:42 104 H 100 10/24/21 12:37 104 H 100 10/24/21 12:32 107 H 100 10/24/21 12:31 102 H 148/71 10/24/21 12:30 97.9 F 101 H 17 148/71 100 10/24/21 12:27 106 H 100 10/24/21 12:22 103 H 100 10/24/21 12:17 105 H 99 10/24/21 12:16 99 H 142/71 10/24/21 12:12 107 H 100 10/24/21 12:07 101 H 100 10/24/21 12:02 55 L 98 10/24/21 12:01 102 H 149/71 10/24/21 12:00 98.4 F 105 H 18 149/71 98 10/24/21 11:56 104 H 93 10/24/21 11:52 105 H 100 10/24/21 11:47 111 H 98 10/24/21 11:46 99 H 153/72 10/24/21 11:42 103 H 100 10/24/21 11:37 103 H 100 10/24/21 11:32 92 H 99 10/24/21 11:31 99 H 154/76 10/24/21 11:30 97.8 F 96 H 18 154/76 100 10/24/21 11:27 97 H 100 10/24/21 11:22 97 H 97 10/24/21 11:20 101 H 89 10/24/21 11:17 92 H 99 10/24/21 11:16 86 144/68 10/24/21 11:12 100 H 99 10/24/21 11:07 97 H 99 10/24/21 11:02 105 H 100 10/24/21 11:01 102 H 143/67 10/24/21 11:00 98.5 F 93 H 16 143/67 143/67 99 10/24/21 10:57 104 H 99 10/24/21 10:52 99 H 148/65 99 10/24/21 10:47 98 H 99 10/24/21 10:45 98.4 F 10/24/21 10:42 99 H 99 10/24/21 10:37 101 H 98 10/24/21 10:32 98 H 99 10/24/21 10:30 98 H 148/65 10/24/21 10:29 99 H 180/81 10/24/21 10:27 100 H 100 10/24/21 10:22 108 H 98 10/24/21 10:17 101 H 99 10/24/21 10:12 100 H 99 10/24/21 10:07 102 H 99 10/24/21 10:02 102 H 99 10/24/21 09:57 100 H 99 Intake and Output 10/24/21 10/25/21 10/25/21 23:59 07:59 15:59 Intake Total 50 480 Output Total 800 Balance -750 480 Intake: IV 50 ANCEF/NS 1 GM/50 ML 1 gm 50 In 50 ml @ 100 mls/hr IV Q8H [facility] Rx#:[id number] Intake, Free Water 480 Output: Urine 800 Void 800 Other: Total, Output Amount 300 # Voids Void 1 - Exam Breasts: Present: normal Cardiovascular: Present: Regular rate Lungs: Present: Normal air movement Abdomen: Present: normal appearance, soft. Absent: tenderness, guarding Uterus: Present: normal, firm, fundal height above umbilicus Extremities: Present: normal Deep Tendon Reflex Grade: Normal +2 Incision: Present: normal, dry, intact - Labs Labs: Abnormal lab results 10/23/21 10/24/21 10/24/21 Range/Units 01:30 15:17 18:47 Hgb 7.3 L (10.1-14.3) gm/dl Hct 21.8 L (30.3-42.9) % Urine WBC (Auto) > 182.0 H (0.0-6.0) /HPF U Epithel Cells (Auto) 92.0 H (0-13.0) /HPF Crossmatch See Detail
[2021-10-25] MEDS ORDERED: IBUPROFEN 800 MG TAB ONE (10:11)
[2021-10-25] MEDS: IBUPROFEN 800 MG TAB PO PRN ×2 (10:17→16:23)
[2021-10-25] MEDS ORDERED: hydrALAZINE 20 MG/1 ML INJ IV SCH (11:00)
[2021-10-25] MEDS ORDERED: ONDANSETRON 4 MG ODT TAB PO PRN (11:00)
[2021-10-25] MEDS ORDERED: hydrALAZINE 20 MG/1 ML INJ IV NR (11:30)
--- NOTE | 2021-10-25 11:48 | Event Note ---
Date: 10/25/21 B/P noted in severe range after increased frequency of labetalol and dose of hydralizine. Dr. Sandoval consulted, Order placed for hospitalist consult. Called [phone] Logan, he will go see patient.
[2021-10-25] MEDS ORDERED: BICITRA ORAL LIQD 30ML PO NR (12:00)
[2021-10-25] MEDS ORDERED: NIFEdipine XL 30 MG TAB PO SCH (18:00)
[2021-10-25] MEDS: FERROUS SULFATE 325 MG TAB PO SCH (21:24)
[2021-10-26] MEDS: IBUPROFEN 800 MG TAB PO PRN ×2 (01:40→10:22)
[2021-10-26] MEDS: HYDROcodone/ACETAMINOPHEN 5-325 MG TAB PO PRN ×3 (04:43→21:21)
[2021-10-26] MEDS ORDERED: hydrALAZINE 20 MG/1 ML INJ IV NR (05:00)
--- NOTE | 2021-10-26 06:04 | Consultation ---
History of Present Illness - Reason for Consult Consult date: 10/25/21 Medical management Requesting physician: TAISHA REYES - History of Present Illness Patient is and was asked to evaluate for increased blood pressure Patient on labetalol 300 twice daily and nifedipine Blood pressures ranging from 130/88-160 5/84. Past History Past Medical History: hypertension, hyperlipidemia Past Surgical History: Other Social history: lives with family, full code Family history: hypertension Medications and Allergies Allergies Allergy/AdvReac Type Severity Reaction Status Date / Time Latex, Natural Rubber Allergy Mild Itching Verified 01/13/18 13:43 Home Medications Medication Instructions Recorded Confirmed Last Taken Type Labetalol HCl 200 tab PO BID 01/13/18 12/14/19 12/11/19 22:00 History Ibuprofen [Motrin] 600 mg PO Q8H PRN #30 tablet 01/16/18 12/14/19 Unknown Rx NIFEdipine XL [Procardia Xl] 60 mg PO QDAY #30 tablet 01/16/18 12/14/19 Unknown Rx labetaloL [Labetalol 200mg TAB] 200 mg PO TID #60 tablet 01/16/18 12/14/19 12/14/19 15:21 Rx oxyCODONE /ACETAMINOPHEN [Percocet 1 tab PO Q6HR PRN #20 tablet 01/16/18 12/14/19 Unknown Rx 5/325] Docusate Sodium [Colace] 100 mg PO BID #30 capsule 12/12/19 Unknown Rx Ferrous Sulfate [Feosol 325 MG tab] 325 mg PO BID #90 tablet 12/12/19 Unknown Rx Ibuprofen [Motrin 800 MG tab] 800 mg PO TID PRN #30 tablet 12/12/19 Unknown Rx Lidocain2.5%/Prilocai2.5% [Emla] 5 gm TP ONCE #1 tube 12/12/19 Unknown Rx oxyCODONE /ACETAMINOPHEN [Percocet 1 - 2 tab PO Q4HR PRN #14 tablet 12/12/19 Unknown Rx 5/325 mg] labetaloL [Labetalol 200mg TAB] 300 mg PO BID #60 tablet 12/13/19 Unknown Rx Ferrous Sulfate [Feosol 325 MG tab] 325 mg PO BID #60 tablet 10/23/21 Unknown Rx Ibuprofen [Motrin] 800 mg PO TID PRN #30 tablet 10/23/21 Unknown Rx Lidocain2.5%/Prilocai2.5% [Emla] 5 gm TP ONCE #1 tube 10/23/21 Unknown Rx labetaloL [Labetalol 200mg TAB] 200 mg PO BID #60 tablet 10/23/21 Unknown Rx oxyCODONE /ACETAMINOPHEN [Percocet 1 tab PO Q6HR PRN #20 tablet 10/23/21 Unknown Rx 5/325 mg] Active Meds: Active Medications Hydrocodone Bitart/Acetaminophen (Hydrocodone/Acetaminophen 5-325 Mg Tab) 2 each PO Q6H PRN PRN Reason: Pain, Moderate (4-6) Last Admin: 10/26/21 04:43 Dose: 2 each Diphenhydramine HCl (Diphenhydramine 25 Mg Cap) 25 mg PO Q6H PRN PRN Reason: Itching Last Admin: 10/24/21 11:19 Dose: 25 mg Ferrous Sulfate (Ferrous Sulfate 325 Mg Tab) 325 mg PO BID [facility] Last Admin: 10/25/21 21:24 Dose: 325 mg Magnesium Sulfate (Magnesium Sulfate 40gm/1000ml) 40 gm in 1,000 mls @ 50 mls/hr IV DIRECT ANSHU Last Admin: 10/23/21 04:50 Dose: 2 gm/hr, 50 mls/hr Oxytocin/Sodium Chloride (Pitocin/Ns 30 Unit/500ml) 30 units in 500 mls @ 40 mls/hr IV TITR ANSHU Last Admin: 10/23/21 04:47 Dose: 40 mls/hr Dextrose/Lactated Ringer's (D5lr) 1,000 mls @ 50 mls/hr IV DIRECT ANSHU Ibuprofen (Ibuprofen 800 Mg Tab) 800 mg PO Q8H PRN PRN Reason: Pain, Mild (1-3) Last Admin: 10/26/21 01:40 Dose: 800 mg Labetalol HCl (Labetalol 100 Mg Tab) 300 mg PO Q8HR ANSHU Last Admin: 10/25/21 21:24 Dose: 300 mg Magnesium Hydroxide (Magnesium Hydroxide (Mom) Oral Liqd Udc) 30 ml PO QHS PRN PRN Reason: Constip Unrelieved By Senna Last Admin: 10/25/21 11:08 Dose: 30 ml Multi-Ingredient Ointment (Lanolin/Zinc/Dimethicone (Lansinoh) 7 Gm) 1 applic TP PRN PRN PRN Reason: dryness/cracking Naloxone HCl (Naloxone 0.4 Mg/1 Ml Inj) 0.1 mg IV Q2MIN PRN PRN Reason: Res Rate </= 8 or 02 SAT < 92% Nifedipine (Nifedipine Xl 30 Mg Tab) 30 mg PO QDAY ANSHU Last Admin: 10/25/21 17:50 Dose: 30 mg Ondansetron HCl (Ondansetron 4 Mg/2 Ml Inj) 4 mg IV Q8H PRN PRN Reason: Nausea And Vomiting Last Admin: 10/25/21 23:03 Dose: 4 mg Ondansetron HCl (Ondansetron 4 Mg Odt Tab) 4 mg PO Q8H PRN PRN Reason: Nausea And Vomiting Simethicone (Simethicone 80 Mg Chew Tab) 80 mg PO Q6H PRN PRN Reason: Gas pain Last Admin: 10/25/21 08:49 Dose: 80 mg Witch Sita/Glycerin (Witch Sita/ Glycerin Pad) 1 each TP PRN PRN PRN Reason: Hemorrhoids/cleansing/soothing Exam - Constitutional Vitals: Temp Pulse Resp BP Pulse Ox 98.5 F 99 H 20 147/85 98 10/26/21 05:15 10/26/21 05:15 10/26/21 05:15 10/26/21 05:15 10/25/21 19:35 General appearance: Present: no acute distress, well-nourished - EENT Eyes: Present: PERRL ENT: hearing intact, clear oral mucosa - Neck Neck: Present: supple, normal ROM - Respiratory Respiratory effort: normal Respiratory: bilateral: CTA - Cardiovascular Rhythm: regular (78) Heart Sounds: Present: S1 & S2. Absent: rub, click - Extremities Extremities: pulses symmetrical, No edema Peripheral Pulses: within normal limits - Abdominal General gastrointestinal: Present: soft, non-tender, non-distended, normal bowel sounds Female genitourinary: Present: normal - Integumentary Integumentary: Present: clear, warm, dry - Musculoskeletal Musculoskeletal: gait normal, strength equal bilaterally - Psychiatric Psychiatric: appropriate mood/affect, intact judgment & insight - Neurologic Neurologic: CNII-XII intact, moves all extremities Results - Labs CBC & Chem 7: 10/24/21 18:47 10/23/21 01:29 Assessment and Plan - Patient Problems (1) Uncontrolled hypertension Current Visit: Yes Status: Acute Plan to address problem: Blood pressure medications were adjusted Labetalol 300 mg every 8 Continue nifedipine continue IV hydralazine 10 mg IV for blood pressure more than 160 systolic and more than 100 diastolic Patient is otherwise stable from medicine point of view Follow-up with primary care physician for management of blood pressure (2) Anemia Current Visit: Yes Status: Chronic Qualifiers: Anemia type: iron deficiency Plan to address problem: Iron supplements Check iron level which is ordered (3) DVT prophylaxis Current Visit: Yes Status: Acute Plan to address problem: SCDs and GI prophylaxis
[2021-10-26] MEDS ORDERED: hydrALAZINE 20 MG/1 ML INJ IV PRN (07:00)
--- NOTE | 2021-10-26 08:11 | Progress Note ---
Assessment and Plan A: 31 y.o. s/p rpt , No PNC, cHTN super imposed on pre eclampsia. P: Will reassess blood pressures this afternoon. - If stable, will discharge patient home. - Patient Problems (1) care insufficient Current Visit: Yes Status: Acute Qualifiers: Trimester: third trimester Qualified Code(s): O09.33 - Supervision of with insufficient care, third trimester (2) delivery delivered Onset Date: ~12/12/19 Current Visit: No Status: Acute (3) Chronic hypertension with superimposed pre-eclampsia Onset Date: ~12/13/19 Current Visit: No Status: Acute (4) Anemia Current Visit: Yes Status: Acute Qualifiers: Anemia type: iron deficiency Subjective - Subjective Date of service: 10/26/21 Principal diagnosis: s/p rpt , POD #3, s/p mag, CHTN, No PNC Interval history: Pt denies QUINTANILLA, blurred vision, spots before her eyes, chest pain, shortness of breath, and upper abdominal pain. Patient reports: voiding normally, pain well controlled, flatus, ambulating normally, nauseated, other (c/o shortness of breath) [place]: doing well Objective - Vital Signs Latest vital signs: Vital Signs Temp Pulse Resp BP BP BP Pulse Ox 10/26/21 06:02 94 H 151/82 10/26/21 05:30 92 H 18 148/86 10/26/21 05:15 98.5 F 99 H 20 147/85 10/26/21 05:00 92 H 18 147/84 10/26/21 04:55 99 H 18 156/86 10/26/21 04:50 90 20 149/80 10/26/21 04:45 97 H 161/106 10/26/21 04:43 20 10/26/21 04:15 98.6 F 97 H 18 161/106 10/26/21 01:40 20 10/26/21 00:35 98.6 F 93 H 18 153/92 10/25/21 21:24 90 160/89 10/25/21 19:35 10/25/21 19:34 18 10/25/21 19:31 98.0 F 104 H 18 154/93 97 10/25/21 17:09 98.0 F 107 H 18 161/96 96 10/25/21 13:59 106 H 143/85 10/25/21 12:22 99.0 F 18 155/90 10/25/21 12:21 20 10/25/21 11:41 104 H 167/92 10/25/21 11:17 18 10/25/21 11:06 100 H 179/105 10/25/21 11:02 94 H 193/107 10/25/21 10:44 97 H 174/99 10/25/21 10:17 20 10/25/21 08:37 100 H 172/102 10/25/21 08:30 97.8 F 99 H 18 172/102 96 Pulse Ox 10/26/21 06:02 10/26/21 05:30 10/26/21 05:15 10/26/21 05:00 10/26/21 04:55 10/26/21 04:50 10/26/21 04:45 10/26/21 04:43 10/26/21 04:15 10/26/21 01:40 10/26/21 00:35 10/25/21 21:24 10/25/21 19:35 98 10/25/21 19:34 10/25/21 19:31 10/25/21 17:09 10/25/21 13:59 10/25/21 12:22 10/25/21 12:21 10/25/21 11:41 10/25/21 11:17 10/25/21 11:06 10/25/21 11:02 10/25/21 10:44 10/25/21 10:17 10/25/21 08:37 10/25/21 08:30 98 Intake and Output 10/25/21 10/26/21 10/26/21 22:59 06:59 14:59 Intake Total 200 200 Balance 200 200 Intake: Oral 200 200 Other: Total, Intake Amount 200 200 # Voids Void 1 - Exam Narrative Exam: Blood pressure ranges 130-140's-80's. Breasts: Present: deferred Cardiovascular: Present: Normal S1, Normal S2 Lungs: Present: Clear to auscultation Abdomen: Present: normal appearance, normal bowel sounds Vulva: both: normal Extremities: Present: normal Incision: Present: normal, dry, intact, other (No drainage or s/sx of infection noted. )
[2021-10-26] MEDS ORDERED: FAMOTIDINE 20 MG TAB PO SCH (10:00)
[2021-10-26] MEDS: FERROUS SULFATE 325 MG TAB PO SCH ×2 (10:21→21:22)
[2021-10-26] MEDS: hydrALAZINE 25 MG TAB PO SCH ×3 (10:22→21:23)
[2021-10-26] MEDS: NIFEdipine XL 30 MG TAB PO SCH ×2 (10:23→21:23)
--- NOTE | 2021-10-26 17:57 | Discharge Summary ---
Providers - Providers Date of Admission: 10/23/21 05:57 Date of discharge: 10/26/21 Attending physician: TAISHA REYES 10/23/21 05:57 Consult to Medical Review Coordinator [CONS] Routine Reason For Exam: 10/24/21 07:46 Consult to Case Management [CONS] Routine Services Needed at Discharge: [employer] Notified:: yes Phone number called:: [phone] Was contact made?: Yes Additional Physician Instructions: No care. Make sure she has all she needs for the baby at home. 10/25/21 11:42 Consult to Physician [CONS] Stat Comment: Consulting Provider: STEFANIA FINK Physician Instructions: Reason For Exam: uncontrolled htn - delivered c/s Primary care physician: [facility] Hospitalization Reason for admission: rupture of membranes Delivery: Procedure: repeat low transverse Episiotomy: none Laceration: none Incision: normal, dry, intact Other procedures: none complications: other (Pre eclampsia on magnesium infusion. ) Discharge diagnosis: IUP at term delivered baby: male Pertinent studies: Pt has a very strong desire to go home. She states that she has other children at home that she needs to attend to. Pt denies QUINTANILLA, blurred vision, spots before her eyes, chest pain, shortness of breath, and upper abdominal pain. We discussed how to take her medication and how to take her blood pressure properly. Pt verbalized understanding. We also discussed coming to the office in 1 week for her blood pressure check. Pt states that she will be there. Pt also denies feelings of lightheadedness, dizziness. Hospital course: S: Pt doing well. Passing flatus, ambulating and voiding okay. BC: IUD. O: VSS. Blood pressure ranges mostly 130-140's/70-80's. Incision open to air, intact, dry. No s/sx of infection, no drainage noted. H/H 7.3/21.8, s/p blood transfusion. Asymptomatic anemia of . A: 31 y.o. s/p rpt . cHTN superimposed pre eclampsia, no PNC. In good condition . P: Discharge home with instructions. To schedule son's circumcision in the office in 1 week. To schedule her blood pressure check in the office in 1 week. Condition at discharge: Good Disposition: 01 HOME / SELF CARE / HOMELESS Plan - Discharge Medications Prescriptions: Docusate Sodium [Colace] 100 mg PO BID PRN #60 capsule PRN Reason: Constipation Lidocain2.5%/Prilocai2.5% [Emla] 5 gm TP ONCE #1 tube Ferrous Sulfate [Feosol 325 MG tab] 325 mg PO BID #60 tablet labetaloL [Labetalol 200mg TAB] 200 mg PO BID #60 tablet Labetalol HCl [Labetalol 300mg TAB] 300 mg PO Q8HR #90 Ibuprofen [Motrin] 800 mg PO TID PRN #30 tablet PRN Reason: Pain oxyCODONE /ACETAMINOPHEN [Percocet 5/325 mg] 1 tab PO Q6HR PRN #20 tablet PRN Reason: Pain NIFEdipine XL [Procardia Xl] 30 mg PO Q12HR #60 tab - Provider Discharge Summary Activity: routine, no sex for 6 weeks, no heavy lifting 4 weeks, no strenuous exercise Diet: routine Instructions: routine Additional instructions: [] Smoking cessation referral if applicable(refer to patient education folder for contact #) [] Refer to [facility]'s [facility] Booklet Call your doctor immediately for: * Fever > 100.5 * Heavy vaginal bleeding ( >1 pad per hour) * Severe persistent headache * Shortness of breath * Reddened, hot, painful area to leg or breast * Drainage or odor from incision. * Keep incision clean and dry at all times and follow doctor's instructions regarding bathing/showering - Follow up plan Follow up: PRIMARY CARE, [Primary Care Provider] - 7 Days TAISHA REYES MD [Staff Physician] - 7 Days (- Congratulations on your baby boy! - Please schedule your blood pressure check in the office in 1 week. - Please schedule your son's circumcision in 1 week. Bring EMLA cream with you to his appointment. - While you are at home, if you experience a headache, blurred vision, spots before your eyes, chest pain, shortness of breath, and pain in your upper belly, and/or your blood pressure is 140/90 or greater please call the on-call provider immediately. - Please take all medication as prescribed. -Should you have any questions or concerns after discharge, please call us at [phone].)
--- NOTE | 2021-10-26 19:42 | Progress Note ---
Assessment and Plan Assessment and plan: --Uncontrolled hypertension Current Visit: Yes Status: Acute On multiple antihypertensives Blood pressure well controlled Follow with primary care physician/[employer] per schedule --Anemia Current Visit: Yes Status: Chronic Received 2 units of PRBC transfusion Continue ferrous sulfate --Obesity ; BMI 38.7 ; Patient advised diet modification Exercise as tolerated and weight reduction When medically stable Patient needs to follow-up with primary care physician For her medical needs Patient is medically stable for discharge Thank you for this consultation History Interval history: I have seen and examined the patient at the bedside Patient feels better no new complaints Is being discharged Blood pressures well controlled On multiple antihypertensives Hospitalist Physical - Constitutional Vitals: Temp Pulse Resp BP Pulse Ox 98.2 F 106 H 20 143/76 99 10/26/21 16:30 10/26/21 16:30 10/26/21 16:30 10/26/21 16:30 10/26/21 16:30 General appearance: Present: no acute distress, obese (Morbidly obese) - EENT Eyes: Present: PERRL, EOM intact - Neck Neck: Present: supple, normal ROM - Respiratory Respiratory effort: normal Respiratory: bilateral: diminished, negative: rales, rhonchi, wheezing - Cardiovascular Rhythm: regular Heart Sounds: Present: S1 & S2 - Extremities Extremities: no ischemia, No edema - Abdominal General gastrointestinal: soft, non-tender, non-distended, normal bowel sounds - Integumentary Integumentary: Present: clear, warm - Psychiatric Psychiatric: appropriate mood/affect, cooperative - Neurologic Neurologic: moves all extremities Results - Labs CBC & Chem 7: 10/24/21 18:47 10/23/21 01:29 Labs: Laboratory Last Values WBC 9.4 K/mm3 (4.5-11.0) 10/23/21 02:27 RBC 3.40 M/mm3 (3.65-5.03) L 10/23/21 02:27 Hgb 7.3 gm/dl (10.1-14.3) L 10/24/21 18:47 Hct 21.8 % (30.3-42.9) L 10/24/21 18:47 MCV 79 fl (79-97) 10/23/21 02:27 MCH 27 pg (28-32) L 10/23/21 02:27 MCHC 34 % (30-34) 10/23/21 02: RDW 17.3 % (13.2-15.2) H 10/23/21 02:27 Plt Count 242 K/mm3 (140-440) 10/23/21 02:27 Lymph % (Auto) 24.7 % (13.4-35.0) 10/23/21 02:27 [place] % (Auto) 6.7 % (0.0-7.3) 10/23/21 02:27 Eos % (Auto) 0.6 % (0.0-4.3) 10/23/21 02:27 Baso % (Auto) 0.6 % (0.0-1.8) 10/23/21 02: Lymph # (Auto) 2.3 K/mm3 (1.2-5.4) 10/23/21 02: [place] # (Auto) 0.6 K/mm3 (0.0-0.8) 10/23/21 02: Eos # (Auto) 0.1 K/mm3 (0.0-0.4) 10/23/21 02:27 Baso # (Auto) 0.1 K/mm3 (0.0-0.1) 10/23/21 02:27 Seg Neutrophils % 67.4 % (40.0-70.0) 10/23/21 02: Seg Neutrophils # 6.4 K/mm3 (1.8-7.7) 10/23/21 02:27 Creatinine 0.6 mg/dL (0.6-1.2) 10/23/21 01:29 Estimated GFR > 60 ml/min 10/23/21 01:29 Uric Acid 5.0 mg/dL (3.5-7.6) 10/23/21 01:29 Magnesium 5.00 mg/dL (1.7-2.3) H 10/24/21 00:57 AST 15 units/L (5-40) 10/23/21 01:29 ALT 8 units/L (7-56) 10/23/21 01:29 Lactate Dehydrogenase 191 units/L (91-180) H 10/23/21 01:29 Urine Color Red (Yellow) 10/24/21 15:17 Urine Turbidity Cloudy (Clear) 10/24/21 15:17 Urine pH 6.0 (5.0-7.0) 10/24/21 15:17 Ur Specific [place] 1.009 (1.003-1.030) 10/24/21 15:17 Urine Protein 100 mg/dl mg/dL (Negative) 10/24/21 15:17 Urine Glucose (UA) Neg mg/dL (Negative) 10/24/21 15:17 Urine Ketones Neg mg/dL (Negative) 10/24/21 15:17 Urine Blood Lg (Negative) 10/24/21 15:17 Urine Nitrite Neg (Negative) 10/24/21 15:17 Urine Bilirubin Neg (Negative) 10/24/21 15:17 Urine Urobilinogen < 2.0 mg/dL (<2.0) 10/24/21 15:17 Ur Leukocyte Esterase Lg (Negative) 10/24/21 15:17 Urine WBC (Auto) > 182.0 /HPF (0.0-6.0) H 10/24/21 15:17 Urine RBC (Auto) > 182.0 /HPF (0.0-6.0) 10/24/21 15:17 U Epithel Cells (Auto) 92.0 /HPF (0-13.0) H 10/24/21 15:17 Membranes Rupture Positive (Negative) A 10/23/21 00:55 Urine Opiates Screen Negative 10/23/21 15:17 Urine Methadone Screen Negative 10/23/21 15:17 Ur Barbiturates Screen Negative 10/23/21 15:17 Ur Phencyclidine Scrn Negative 10/23/21 15:17 Ur Amphetamines Screen Negative 10/23/21 15:17 U Benzodiazepines Scrn Negative 10/23/21 15:17 Urine Cocaine Screen Negative 10/23/21 15:17 U Marijuana (THC) Screen Negative 10/23/21 15:17 Drugs of Abuse Note Disclamer 10/23/21 15:17 Syphilis IgG/IgM Ab Nonreactive (NonReactive) 10/23/21 01:30 SARS-CoV-2 (PCR) Negative (Negative) 10/23/21 09:15 Hep Bs Antigen Non-reactive (Negative) 10/23/21 01:30 Hepatitis C Antibody Non-reactive (NonReactive) 10/23/21 01:30 HIV 1&2 Antibody Rapid Non react (Non React) 10/23/21 01:30 HIV P24 Antigen Non react (Non React) 10/23/21 01:30 Rubella IgG Antibody Immune (Immune) 10/23/21 01:30 Blood Type O POSITIVE 10/23/21 01:30 Antibody Screen Negative 10/23/21 01:30 Crossmatch See Detail 10/23/21 01:30 Active Medications - Current Medications Current Medications: Generic Name Dose Route Start Last Admin Trade Name Freq PRN Reason Stop Dose Admin Hydrocodone Bitart/Acetaminophen 2 each 10/24/21 08:00 10/26/21 15:10 Hydrocodone/Acetaminophen 5-325 Mg Tab PO 2 each Q6H PRN Administration Pain, Moderate (4-6) Diphenhydramine HCl 25 mg 10/24/21 12:00 10/24/21 11:19 Diphenhydramine 25 Mg Cap PO 25 mg Q6H PRN Administration Itching Famotidine 20 mg 10/26/21 10:00 10/26/21 10:21 Famotidine 20 Mg Tab PO 20 mg QDAY ANSHU Administration Ferrous Sulfate 325 mg 10/24/21 22:00 10/26/21 10:21 Ferrous Sulfate 325 Mg Tab PO 325 mg BID ANSHU Administration Hydralazine HCl 25 mg 10/26/21 08:00 10/26/21 15:13 Hydralazine 25 Mg Tab PO 25 mg Q8HR ANSHU Administration Magnesium Sulfate 40 gm in 1,000 mls @ 50 mls/hr 10/23/21 05:57 10/23/21 04:50 Magnesium Sulfate 40gm/1000ml IV 2 gm/hr DIRECT ANSHU 50 mls/hr Administration 2 GM/HR Oxytocin/Sodium Chloride 30 units in 500 mls @ 40 mls/hr 10/23/21 05:57 10/23/21 04:47 Pitocin/Ns 30 Unit/500ml IV 40 mls/hr TITR ANSHU Administration Dextrose/Lactated Ringer's 1,000 mls @ 50 mls/hr 10/23/21 05:57 D5lr IV DIRECT ANSHU Ibuprofen 800 mg 10/25/21 10:30 10/26/21 10:22 Ibuprofen 800 Mg Tab PO 800 mg Q8H PRN Administration Pain, Mild (1-3) Labetalol HCl 300 mg 10/25/21 08:00 10/26/21 15:02 Labetalol 100 Mg Tab PO 300 mg Q8HR ANSHU Administration Magnesium Hydroxide 30 ml 10/23/21 05:57 10/25/21 11:08 Magnesium Hydroxide (Mom) Oral Liqd Udc PO 30 ml QHS PRN Administration Constip Unrelieved By Guillermo Multi-Ingredient Ointment 1 applic 10/23/21 05:57 Lanolin/Zinc/Dimethicone (Lansinoh) 7 Gm TP PRN PRN dryness/cracking Naloxone HCl 0.1 mg 10/23/21 05:57 Naloxone 0.4 Mg/1 Ml Inj IV Q2MIN PRN Res Rate </= 8 or 02 SAT < 92% Nifedipine 30 mg 10/26/21 10:00 10/26/21 10:23 Nifedipine Xl 30 Mg Tab PO 30 mg Q12HR ANSHU Administration Ondansetron HCl 4 mg 10/23/21 05:57 10/25/21 23:03 Ondansetron 4 Mg/2 Ml Inj IV 4 mg Q8H PRN Administration Nausea And Vomiting Ondansetron HCl 4 mg 10/25/21 11:00 Ondansetron 4 Mg Odt Tab PO Q8H PRN Nausea And Vomiting Simethicone 80 mg 10/23/21 05:57 10/25/21 08:49 Simethicone 80 Mg Chew Tab PO 80 mg Q6H PRN Administration Gas pain Witch Sita/Glycerin 1 each 10/23/21 05:57 Witch [place]/ Glycerin Pad TP PRN PRN Hemorrhoids/cleansing/soothing
[2021-10-26 21:21] VITALS: BP 146/90
== END 2021-10-26 21:55 | disposition home or self-care (01) | DRG 765 ==
LOC: TRG 00:07 → APU 00:09 → UNDOADMIN 04:26 → LD 04:26 → TRG 04:26 → LD 05:57 → OB 10-24 13:41
PROVIDERS: ADMIT Obstetrics & Gynecology; ATTEND Obstetrics & Gynecology
PROC: 10D00Z1 Extraction of Products of Conception, Low, Open Approach (ICD-10-PCS; principal; 2021-10-23)
PROC: 3E0134Z Introduction of Serum, Toxoid and Vaccine into Subcutaneous Tissue, Percutaneous Approach (ICD-10-PCS; 2021-10-24)
PROC: 30233N1 Transfusion of Nonautologous Red Blood Cells into Peripheral Vein, Percutaneous Approach (ICD-10-PCS; 2021-10-24)
DX: O34.211 Maternal care for low transverse scar from previous cesarean delivery (principal); O10.92 Unspecified pre-existing hypertension complicating childbirth; D50.9 Iron deficiency anemia, unspecified; O42.02 Full-term premature rupture of membranes, onset of labor within 24 hours of rupture; O99.214 Obesity complicating childbirth; E66.01 Morbid (severe) obesity due to excess calories; O99.02 Anemia complicating childbirth; O69.81X0 Labor and delivery complicated by cord around neck, without compression, not applicable or unspecified; Z20.822 Contact with and (suspected) exposure to COVID-19; Z23 Encounter for immunization; Z37.0 Single live birth; Z3A.37 37 weeks gestation of pregnancy; O11.4 Pre-existing hypertension with pre-eclampsia, complicating childbirth
CPT/HCPCS: 36415; 76805; 76816; 80307; 81001; 82565; 83615; 83735; 84112; 84450; 84460; 84550; 85014; 85018; 85025; 85027; 86592; 86706; 86762; 86803; 86850; 86900; 86901; 86920; 87806; G0378; J3490; J7121; C1765; J0360; J0690; J1885; J2274; J2405; J2590; J2765; J3475; J7040; J7120; P9016; U0003